=== PATIENT | female | born 1930 | race Caucasian/White ===

== ENCOUNTER 2017-01-01 22:27 | Inpatient (IN) ==
[2017-01-01] MEDS ORDERED: VASOTEC IV ONE (23:22)
[2017-01-01] MEDS ORDERED: NITROGLYCERIN TOP ONE (23:23)
[2017-01-01] MEDS ORDERED: LASIX IV ONE (23:23)
[2017-01-01] MEDS ORDERED: VASOTEC ONE (23:35)
[2017-01-01 23:36] LABS: MANUAL DIFF NEEDED? NO
[2017-01-01 23:47] LABS: BASO% 0.4 % (0.0-0.8); EOS# 0.42 X1000 (0.0-0.7); EOS% 5.9 % (0.0-10.0); HEMATOCRIT 35.1 % (37.0-47.0); HEMOGLOBIN 11.5 g/dL (12.0-16.0); IMM GRAN# 0.01 X1000 (0.0-0.04); IMM GRAN% 0.1 % (0.0-0.5); LYMPH# 1.22 X1000 (1.2-3.4); LYMPH% 17.1 % (20.5-51.1); MCH 29.6 PG (27-31); MCHC 32.8 g/dL (33-37); MCV 90.2 FL (81-99); MONO# 0.67 X1000 (0.11-0.59); MONO% 9.4 % (1.7-9.3); MPV 10.5 FL (7.4-10.4); NEUT% 67.1 % (42.2-75.2); PLT 149 X1000 (130-400); RBC 3.89 XMIL (4.2-5.4)
[2017-01-02] LABS: ALBUMIN 3.6 g/dL (3.5-5.0); CALCIUM 8.4 mg/dL (8.8-10.2); POTASSIUM 3.7 mmol/L (3.5-5.1); TOTAL BILIRUBIN 0.5 mg/dL (0.20-1.00); TOTAL PROTEIN 6.3 g/dL (6.3-8.3)
[2017-01-02 00:11] LABS: URINE CULTURE PL NEEDED? NO
[2017-01-02 00:36] LABS: BILIRUBIN URINE NEGATIVE (NEGATIVE); BLOOD URINE NEGATIVE (NEGATIVE); CLARITY CLEAR (CLEAR); COLOR YELLOW; GLUCOSE URINE NEGATIVE (NEGATIVE); LEUKOCYTES URINE NEGATIVE (NEGATIVE); NITRITE URINE NEGATIVE (NEGATIVE); PROTEIN URINE NEGATIVE (NEGATIVE); SP GRAVITY URINE 1.005; UROBILINOGEN URINE NORMAL
[2017-01-02 00:37] LABS: URINE EPITHELIAL CELLS <10 /HPF (<10); URINE RBC <10 /HPF (<10); URINE SOURCE CATH; URINE WBC <10 /HPF (<10)
[2017-01-02] MEDS ORDERED: TYLENOL PO PRN (01:03)
[2017-01-02] MEDS ORDERED: ZOFRAN IV PRN (01:03)
--- NOTE | 2017-01-02 01:03 | PROVIDER DOCUMENTATION ---
This chart was entered by Andra Romeo Scribe, acting as scribe for Mt Baker MD. HPI-General Adult - General Chief Complaint: Shortness of Breath Stated Complaint: SOB,WEAKNESS Time Seen by Provider: 01/01/17 23:10 Source: patient Allergies/Adverse Reactions: Patient Allergies Allergy/AdvReac Type Severity Reaction Status Date / Time cyclobenzaprine HCl * Allergy Intermediate HEART RACES Verified 01/01/17 22:41 [From Flexeril] Home Medications: Home Medication List Medication Instructions Recorded Confirmed Last Taken Type Aspirin EC 81 mg PO QAM 01/01/17 01/01/17 01/01/17 History Atorvastatin Calcium [Atorvastatin 80 mg PO QHS 01/01/17 01/01/17 01/01/17 History Calcium] Digoxin [Digox] 125 mcg PO DAILY 01/01/17 01/01/17 01/01/17 History Fentanyl [Fentanyl] 1 unit 01/01/17 12/29/16 History Flecainide Acetate [Flecainide 1 tab PO BID 01/01/17 01/01/17 01/01/17 History Acetate] Furosemide [Lasix] 1 tab PO 01/01/17 12/30/16 History Lisinopril [Lisinopril] 20 mg PO BID 01/01/17 01/01/17 01/01/17 History Meloxicam [Meloxicam] 1 tab PO BID 01/01/17 01/01/17 01/01/17 History Metoprolol Succinate [Toprol Xl] 25 mg PO QHS 01/01/17 01/01/17 01/01/17 History Omeprazole [Omeprazole] 1 cap PO QAM 01/01/17 01/01/17 01/01/17 History Oxycodone HCl/Acetaminophen 1 tab PO Q6H PRN PRN 01/01/17 01/01/17 01/01/17 History [Percocet 7.5-325 mg Tablet] Potassium Chloride [Potassium 10 meq PO DIRECTED 01/01/17 01/01/17 12/30/16 History Chloride] Pregabalin [Lyrica] 75 mg PO BID 01/01/17 01/01/17 01/01/17 History Verapamil HCl [Verapamil ER] 1 tab PO BID 01/01/17 01/01/17 01/01/17 History - History of Present Illness -Gen Adult Nature of Presenting Problems: PT IS A 86YOF PRESENTING TO THE ED C/O SOB. PT STATES SHE HAS GOTTEN PROGRESSIVELY SOB AND SWELLING IN HER LOWER EXT. PT HAS A CARDIAC HISTORY AND PACEMAKER IN PLACE. SHE STATES FOR THE PAST FEW DAYS HER WHEEZING AND FATIGUE IS GETTING WORSE AND WANTED TO COME IN TO BE CHECKED OUT TO BE SAFE. Location of Pain/Injury: reports: none Pain Radiation: reports: no radiation Quality of Pain: reports: none Severity: reports: mild, moderate Onset/Duration: reports: gradual, 3 days ago Timing: reports: still present Context/Activities at Onset: reports: light activity Modifying Factors: improves with: nothing Associated Symptoms: reports: fatigue, malaise, shortness of breath, weakness, trouble walking. denies: back/neck pain, chest pain, nausea, vomiting Similar Symptoms Previously?: No Recently seen or treated by another doctor?: No Review of Systems - Adult - REVIEW OF SYSTEMS - ADULT Constitutional: reports: no symptoms reported Eyes: reports: no symptoms reported Ears, Nose, Mouth & Throat: reports: no symptoms reported Cardiovascular: reports: no symptoms reported Respiratory: reports: see HPI, cough, dyspnea on exertion, shortness of breath, wheezing Gastrointestinal: reports: no symptoms reported Genitourinary: reports: no symptoms reported Musculoskeletal: reports: no symptoms reported Integumentary: reports: no symptoms reported Neurological: reports: no symptoms reported Psychiatric: reports: no symptoms reported Endocrine: reports: no symptoms reported Hematologic/Lymphatic: reports: no symptoms reported Allergic/Immunologic: reports: no symptoms reported All Other Systems: Reviewed and Negative Past History - Adult - PAST MEDICAL HISTORY-ADULT Review of Records: reports: Old Records Reviewed, Nursing Assessment Review, Medications Reviewed, Social history reviewed & non-contributory. Major Childhood Illnesses: reports: denies history Cardiovascular: reports: cardiac disease, A-Fib, HTN, palpitations Respiratory: reports: denies history Gastrointestinal: reports: denies history Obstetrical/Gynecological: reports: denies history Genitourinary: reports: denies history Musculoskeletal: reports: denies history Neurological: reports: denies history Endocrine/Immune: reports: denies history Other Conditions: reports: denies history - PRIOR SURGERIES/PROCEDURES Surgical/Procedure History: reports: pacemaker, orthopedic (extremity) - IMMUNIZATION STATUS Childhood Immunizations: See Nurse Assessment Flu Vaccine: See Nurse Assessment - FAMILY HISTORY Family History: reviewed, not pertinent - SOCIAL HISTORY Smoking: denies, non-smoker Substance Use: none/never, denies Alcohol Use Frequency: never Living Situation: family Physical Exam-General - PHYSICAL EXAM-ADULT Initial Vital Signs Reviewed: Yes - CONSTITUTIONAL General Appearance: appears well, alert, mild distress, anxious. negative: no apparent distress - EYES Eyes: PERRL/EOMI, pink conjunctivae, fundi clear, no AV nicking - HEAD, EARS, NOSE, MOUTH & THROAT HENMT: normocephalic/atraumatic, moist mucous membranes, normal ENT inspection, TMs normal, pharynx normal - NECK Neck: non-tender, full range of motion, supple, normal inspection - RESPIRATORY Respiratory: chest non-tender, no pleuratic chest pain, no respiratory distress , no accessory muscle use, decreased breath sounds, rales (BIBASILAR), wheezing . negative: lungs clear, normal breath sounds - CARDIOVASCULAR Cardiovascular: normal peripheral pulses, regular rate, rhythm, no edema, no gallop, no JVD, no murmur - GASTROINTESTINAL (ABDOMEN) Abdominal Exam: normal bowel sounds, non tender, soft, no organomegaly, no pulsatile mass - LYMPHATIC Lymphatic: no adenopathy - MUSCULOSKELETAL Back Exam: normal inspection, no CVA tenderness, no vertebral tenderness Extremity: normal range of motion, non-tender, normal gait, normal inspection, no calf tenderness, normal capillary refill, pelvis stable, pedal edema (2-3+ EDEMA BILATERAL UP TO KNEES). 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 negative: normal mood/affect Progress - PLAN OF CARE/RESULTS Progress/Plan/Lab Results: Vital Signs - 8 hr 01/01/17 22:35 Temperature 97.5 F L Pulse Rate 62 Respiratory Rate 22 Blood Pressure 173/73 O2 Sat by Pulse Oximetry 89 L Orders Category Date Time Status Enalaprilat [Vasotec] Med 01/01/17 23:22 Once 2.5 mg IV NOW ONE Nitroglycerin Med 01/01/17 23:23 Once 1 inch TOP NOW ONE Result Diagrams: 01/01/17 23:10 01/01/17 23:10 - XRAY 1 XRAY: Bilateral XRAY Study: Chest (CARDIOMEGALLY, PULMONARY EDEMA - YUMI) Departure - Departure Time of Disposition Decision: 01:00 DIAGNOSIS: CHF (congestive heart failure), NYHA class I Qualifiers: Congestive heart failure type: diastolic Congestive heart failure chronicity: acute Qualified Code(s): I50.31 - Acute diastolic (congestive) heart failure Disposition: ADMITTED INPATIENT 09 Certified Medical Emergency: Emergent Condition: Fair Referrals and Follow-Ups: Emmett Balderrama MD [Primary Care Provider] - This chart was documented by the indicated scribe, (Andra Romeo Scribe) and accurately reflects the services I performed and decisions made by , Mt Baker MD, as attested by the provider's signature.
[2017-01-02] MEDS ORDERED: LASIX IV SCH (01:15)
--- NOTE | 2017-01-02 06:38 | EKG Report ---
Test Performed on : 01/01/2017 11:28:40 PM Test Reason : pain Blood Pressure : / mmHG Vent. Rate : 060 BPM Atrial Rate : 060 BPM P-R Int : 000 ms QRS Dur : 168 ms QT Int : 464 ms P-R-T Axes : -79 -64 116 degrees QTc Int : 464 ms Ventricular-paced rhythm Abnormal ECG When compared with ECG of 21-NOV-2013 10:25, Electronic ventricular pacemaker has replaced Sinus rhythm. Unconfirmed Result
[2017-01-02] MEDS ORDERED: PERCOCET-5 PO PRN (07:43)
[2017-01-02] MEDS ORDERED: SINGULAIR PO PRN (07:43)
[2017-01-02] MEDS ORDERED: LASIX PO SCH ×2 (07:45→09:00)
[2017-01-02] MEDS ORDERED: LANOXIN PO SCH (09:00)
[2017-01-02] MEDS ORDERED: TAMBOCOR PO SCH (09:00)
[2017-01-02] MEDS ORDERED: ASPIRIN EC PO SCH (09:00)
[2017-01-02] MEDS ORDERED: ISOPTIN SR PO SCH (09:00)
[2017-01-02] MEDS ORDERED: KLOR-CON PO SCH (09:00)
[2017-01-02] MEDS ORDERED: LYRICA PO SCH (09:00)
[2017-01-02] MEDS ORDERED: MOBIC PO SCH (09:00)
[2017-01-02 09:06] LABS: CALCIUM 8.1 mg/dL (8.8-10.2); POTASSIUM 3.5 mmol/L (3.5-5.1)
--- NOTE | 2017-01-02 09:10 | Diag Imaging Result Document ---
PROCEDURE NAME: CHEST-2 VIEWS - 01/01/2017 TWO VIEWS OF THE CHEST: FINDINGS: There is increasing coarse interstitial opacity over both lungs. This may represent worsening pulmonary fibrosis. The inspiration is not quite as optimal as on the previous study of 03/09/2015. There is a pacemaker on the left and electrodes are seen over the lower thoracic spine. IMPRESSION: Possible worsening of pulmonary fibrosis.
--- NOTE | 2017-01-02 10:53 | HISTORY AND PHYSICAL ---
PRIMARY CARE PHYSICIAN: Emmett Balderrama MD CHIEF COMPLAINT: Shortness of breath and bilateral lower extremity edema, wheezing, and fatigue that have progressively worsened over the past couple of days. HISTORY OF PRESENTING ILLNESS: This is an 86-year-old female who presented to [facility] Emergency Room with complaints of increased shortness of breath, bilateral lower extremity edema, wheezing, and fatigue, that had been present for the past several days but had progressively worsened. On arrival, she was noted to have an O2 saturation of 89% on room air. Laboratory data showed a proBNP of 4867. Chest x-ray showed possible worsening of pulmonary fibrosis, so she was admitted for further evaluation and treatment. PAST MEDICAL HISTORY: Supraventricular tachycardia and hypertension. PAST SURGICAL HISTORY: Pacemaker placement and a shoulder surgery. FAMILY HISTORY: Noncontributory. SOCIAL HISTORY: She currently lives alone. Denies any tobacco, alcohol, or illicit drug use. ALLERGIES: Cyclobenzaprine. HOME MEDICATIONS: She takes flecainide 50 mg one p.o. b.i.d., lisinopril 20 mg p.o. b.i.d. is being held, aspirin enteric-coated 81 mg p.o. q.a.m., atorvastatin 80 mg p.o. at bedtime, digoxin 125 mcg p.o. daily, Fentanyl 25 mcg transdermally q.3 days, Lasix 40 mg as directed, Meloxicam 7.5 mg p.o. b.i.d., Toprol-XL 25 mg p.o. at bedtime, Montelukast Sodium 10 mg p.o. q. p.m. p.r.n., omeprazole 40 mg p.o. daily, Percocet 7.5 one p.o. q.6 hours p.r.n., potassium 10 mEq daily, Lyrica 75 mg p.o. b.i.d., verapamil 180 mg p.o. b.i.d. LABORATORY DATA: Showed a white blood cell count of 7.14, hemoglobin 11.5, hematocrit 35.1, platelets 149,000. Sodium 137, potassium 3.7, chloride 102, CO2 24, BUN of 19, creatinine 1.2. Glucose 131. Troponin less than 0.010. ProBNP of 4867. Urinalysis was negative. Chest x-ray showed possible worsening of pulmonary fibrosis. Electrocardiogram showed ventricular paced rhythm at 60. REVIEW OF SYSTEMS: She denied any fever, chills, blurred vision, dizziness, or chest pain. She had a mild nonproductive cough, shortness of breath, wheezing, and fatigue. Denied any abdominal pain, constipation, diarrhea, burning or hurting with urination. Was positive for some bilateral lower extremity edema. PHYSICAL EXAMINATION: VITAL SIGNS: On arrival showed a temperature of 97.5 degrees, pulse 62, respirations 22, blood pressure 173/73. She was saturating 89% on room air. Currently saturating 98% on nasal cannula. GENERAL: This is an 86-year-old female who is lying in the bed and answers questions appropriately. HEENT: Normocephalic and atraumatic. Pupils are equal, round, and reactive to light. Extraocular movements are intact. Oropharynx and nares are clear. NECK: Supple. LUNGS: Clear to auscultation bilaterally with equal lung expansion and chest wall movement. HEART: With regular rate and rhythm. No murmurs, rubs, or gallops. ABDOMEN: Soft, nontender, nondistended. Bowel sounds are present x4 quadrants. EXTREMITIES: No clubbing, cyanosis. Patient is noted to have 2+ pitting edema to bilateral lower extremities. NEUROLOGICAL: The cranial nerves 2-12 are grossly intact. ASSESSMENT: 1. Acute diastolic congestive heart failure. Last echocardiogram in 2014 showed an ejection fraction of 65-70%. 2. Acute respiratory failure. 3. Hypertension. PLAN: She was admitted to the medical unit at [facility]. Placed on daily weights. It is noted when she came in she weighed 141 pounds and 8 ounces. This a.m. she weighed 139 pounds and 12 ounces. Placed on telemetry. O2 per protocol. Healthy heart diet. Continue home medications as previously identified. Dictated by SHREYAS Lundberg for Emmett Balderrama MD cc: SHREYAS Lundberg MD
[2017-01-02 15:39] VITALS: BP 147/64
[2017-01-02] MEDS ORDERED: TOPROL XL PO SCH (21:00)
[2017-01-02] MEDS ORDERED: LIPITOR PO SCH (21:00)
[2017-01-03] MEDS ORDERED: PRILOSEC PO SCH (07:00)
[2017-01-05] MEDS ORDERED: DURAGESIC 25 MICROGM/HR PATCH TD SCH (06:00)
--- NOTE | 2017-01-07 16:55 | DISCHARGE SUMMARY ---
ADMISSION DATE: 01/01/2017 DISCHARGE DATE: 01/02/2017 DISCHARGE DIAGNOSES: 1. Diastolic congestive heart failure. 2. Hypoxemia improved. 3. Generalized weakness. 4. Shortness of breath. 5. Chronic supraventricular tachycardia. 6. Acute respiratory failure resolved. 7. Hypertension stable. CONSULTATIONS: None. PROCEDURES: None. BRIEF HOSPITAL COURSE: The patient is an 86-year-old female who was admitted as noted on the HPI, treated in the usual fashion and watched overnight. Thankfully on discharge her respiratory symptoms had improved. She was feeling better. She was ambulating in the raymond back to her usual self and, therefore, she will be discharged home. DISPOSITION: The patient will be discharged home. She will follow up as outpatient in 1-2 weeks, sooner should symptoms worsen or return. No other changes were made on her chronic home medications. She will continue to watch her diet from heart failure. cc: Emmett Balderrama MD
== END 2017-01-02 22:00 | disposition home or self-care (01) ==
LOC: P.ED 22:27 → P.MEDSURG 01-02 01:25 → SUATTDRO 01-02 01:25
PROVIDERS: ADMIT Family Medicine; ATTEND Family Medicine

== ENCOUNTER 2017-02-13 17:28 | Observation (INO) ==
[2017-02-13 17:48] LABS: MANUAL DIFF NEEDED? NO
[2017-02-13 17:51] LABS: BASO% 0.1 % (0.0-0.8); EOS# 0.33 X1000 (0.0-0.7); EOS% 4.7 % (0.0-10.0); HEMATOCRIT 38.8 % (37.0-47.0); HEMOGLOBIN 12.6 g/dL (12.0-16.0); IMM GRAN# 0.01 X1000 (0.0-0.04); IMM GRAN% 0.1 % (0.0-0.5); LYMPH# 1.65 X1000 (1.2-3.4); LYMPH% 23.7 % (20.5-51.1); MCH 28.9 PG (27-31); MCHC 32.5 g/dL (33-37); MONO# 0.77 X1000 (0.11-0.59); MONO% 11.1 % (1.7-9.3); NEUT% 60.3 % (42.2-75.2); PLT 173 X1000 (130-400); RBC 4.36 XMIL (4.2-5.4)
[2017-02-13 18:09] LABS: INR 0.95 (0.86-1.15)
[2017-02-13 18:10] LABS: PTT PL 31.7 Seconds (22.6-43.9)
--- NOTE | 2017-02-13 18:13 | EKG Report ---
Test Performed on : 02/13/2017 5:58:45 PM Test Reason : CHEST PAIN Blood Pressure : / mmHG Vent. Rate : 060 BPM Atrial Rate : 060 BPM P-R Int : 000 ms QRS Dur : 172 ms QT Int : 458 ms P-R-T Axes : 000 -57 119 degrees QTc Int : 458 ms Ventricular-paced rhythm Abnormal ECG When compared with ECG of 01-JAN-2017 23:28, No significant change was found Unconfirmed Result
[2017-02-13 18:30] LABS: ALBUMIN 3.9 g/dL (3.5-5.0); POTASSIUM 3.8 mmol/L (3.5-5.1); TOTAL BILIRUBIN 0.6 mg/dL (0.20-1.00); TOTAL PROTEIN 6.7 g/dL (6.3-8.3)
--- NOTE | 2017-02-13 18:42 | Diag Imaging Result Doc PS360 ---
EXAM: CHEST-2 VIEWS HISTORY: CP TECHNIQUE: COMPARISON: 01/02/2017 FINDINGS: The lungs are hyperexpanded. 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 The heart is enlarged. There are increased interstitial markings in the mid and lower lungs believed to be fibrosis. No effusions. No free air beneath the diaphragm. There are several mild mid and lower thoracic compression fractures. No definite change. IMPRESSION: 1.Emphysema 2.Cardiomegaly 3.Increased interstitial markings believed to be fibrosis 4.Mild thoracic compression fractures Electronically signed by Imer Javier 02/13/2017 6:40 PM
[2017-02-13] MEDS ORDERED: NS 1,000 ML IV ONE (19:11)
[2017-02-13] MEDS ORDERED: LASIX IV ONE (19:13)
--- NOTE | 2017-02-13 20:17 | PROVIDER DOCUMENTATION ---
This chart was entered by Nadia Yao Scribe, acting as scribe for Felix Burleson MD. HPI-General Adult - General Chief Complaint: Edema Stated Complaint: EXTREMITY SWELLING/SOB Time Seen by Provider: 02/13/17 18:45 Source: patient Allergies/Adverse Reactions: Patient Allergies Allergy/AdvReac Type Severity Reaction Status Date / Time cyclobenzaprine HCl * Allergy Intermediate HEART RACES Verified 01/01/17 22:41 [From Flexeril] Home Medications: Home Medication List Medication Instructions Recorded Confirmed Last Taken Type Aspirin EC 81 mg PO QAM 01/01/17 01/01/17 01/01/17 History Atorvastatin Calcium 80 mg PO QHS 01/01/17 01/01/17 01/01/17 History Digoxin [Digox] 125 mcg PO DAILY 01/01/17 01/01/17 01/01/17 History Fentanyl 25 mcg TD Q3DAYS 01/01/17 01/02/17 12/29/16 History Flecainide Acetate 1 tab PO BID 01/01/17 01/01/17 01/01/17 History Furosemide [Lasix] 40 mg PO DIRECTED 01/01/17 01/02/17 12/30/16 History Lisinopril 20 mg PO BID 01/01/17 01/01/17 01/01/17 History Meloxicam 1 tab PO BID 01/01/17 01/01/17 01/01/17 History Metoprolol Succinate [Toprol Xl] 25 mg PO QHS 01/01/17 01/01/17 01/01/17 History Omeprazole 40 mg PO DAILY@0700 01/01/17 01/02/17 01/01/17 History Oxycodone HCl/Acetaminophen 1 tab PO Q6H PRN PRN 01/01/17 01/01/17 01/01/17 History [Percocet 7.5-325 mg Tablet] Potassium Chloride 10 meq PO DIRECTED 01/01/17 01/01/17 12/30/16 History Pregabalin [Lyrica] 75 mg PO BID 01/01/17 01/01/17 01/01/17 History Verapamil HCl [Verapamil ER] 1 tab PO BID 01/01/17 01/01/17 01/01/17 History Flecainide Acetate 50 mg PO BID 01/02/17 01/02/17 Unknown History Montelukast Sodium 10 mg PO QPM PRN PRN 01/02/17 01/02/17 Unknown History - History of Present Illness -Gen Adult Nature of Presenting Problems: 86 year old F presents to the ED with a cc of edema. PT states that since she was discharged from the hospital on 01/02 she has gained 9 pounds. Pt states that since yesterday she has gained 4 pounds. Severity: reports: mild Onset/Duration: reports: other (1 month) Timing: reports: still present Similar Symptoms Previously?: Yes Recently seen or treated by another doctor?: No Review of Systems - Adult - REVIEW OF SYSTEMS - ADULT Constitutional: denies: chills, fever Eyes: reports: no symptoms reported Ears, Nose, Mouth & Throat: reports: no symptoms reported Cardiovascular: reports: edema. denies: chest pain, palpitations Respiratory: denies: cough, shortness of breath Gastrointestinal: denies: nausea, vomiting Genitourinary: reports: no symptoms reported Musculoskeletal: reports: no symptoms reported Integumentary: denies: skin sores/ulcer, skin thickening Neurological: reports: no symptoms reported Psychiatric: reports: no symptoms reported Endocrine: reports: no symptoms reported Hematologic/Lymphatic: reports: no symptoms reported Allergic/Immunologic: reports: no symptoms reported All Other Systems: Reviewed and Negative Past History - Adult - PAST MEDICAL HISTORY-ADULT Review of Records: reports: Nursing Assessment Review, Medications Reviewed Major Childhood Illnesses: reports: denies history Cardiovascular: reports: cardiac disease, A-Fib, HTN, palpitations Respiratory: reports: denies history Gastrointestinal: reports: denies history Obstetrical/Gynecological: reports: denies history Genitourinary: reports: denies history Musculoskeletal: reports: denies history Neurological: reports: denies history Endocrine/Immune: reports: denies history Other Conditions: reports: denies history - PRIOR SURGERIES/PROCEDURES Surgical/Procedure History: reports: pacemaker, orthopedic (extremity) - IMMUNIZATION STATUS Childhood Immunizations: See Nurse Assessment Flu Vaccine: See Nurse Assessment - FAMILY HISTORY Family History: reviewed, not pertinent - SOCIAL HISTORY Smoking: non-smoker Substance Use: none/never Alcohol Use Frequency: never Physical Exam-General - PHYSICAL EXAM-ADULT Initial Vital Signs Reviewed: Yes - CONSTITUTIONAL General Appearance: appears well, alert, no apparent distress - RESPIRATORY Respiratory: rales - CARDIOVASCULAR Cardiovascular: normal peripheral pulses, regular rate, rhythm, other ( pacemaker pouch to anterior left shoulder) - GASTROINTESTINAL (ABDOMEN) Abdominal Exam: normal bowel sounds, non tender, soft - MUSCULOSKELETAL Back Exam: other (2+ presacral edema) Extremity: pedal edema (2+ bilateral lower extremities) Progress - PLAN OF CARE/RESULTS Progress/Plan/Lab Results: Vital Signs - 8 hr 02/13/17 17:30 02/13/17 17:31 02/13/17 17:45 Temperature 98 F Pulse Rate 66 79 60 Respiratory Rate 22 20 Blood Pressure 150/73 176/86 155/77 O2 Sat by Pulse Oximetry 88 L 96 02/13/17 18:00 02/13/17 18:15 Temperature Pulse Rate 60 60 Respiratory Rate 25 H 19 Blood Pressure 150/77 149/70 O2 Sat by Pulse Oximetry Laboratory Results - last 24 hr 02/13/17 02/13/17 02/13/17 17:40 17:40 17:40 WBC RBC Hgb Hct MCV MCH MCHC RDW Std Deviation Plt Count MPV Immature Gran % (Auto) Neut % (Auto) Lymph % (Auto) Newton % (Auto) Eos % (Auto) Baso % (Auto) Immature Gran # (Auto) Neut # (Auto) Lymph # (Auto) Newton # (Auto) Eos # (Auto) Baso # (Auto) PT INR APTT (Factor Assay) Sodium 138 Potassium 3.8 Chloride 99 Carbon Dioxide 24 L Anion Gap 15 BUN 18 Creatinine 1.3 H Estimated GFR/1.73 m2 39 BUN/Creatinine Ratio 14 Glucose 114 H Calculated Osmolality 278 Calcium 8.0 L Magnesium 2.0 Total Bilirubin 0.60 AST 25 ALT 19 Alkaline Phosphatase 105 H Creatine Kinase 97 Troponin T < 0.010 Zbo-[id number]-Zyqkrjlsngo Pept 6737 H Total Protein 6.7 Albumin 3.9 Globulin 3.0 Albumin/Globulin Ratio 1.0 02/13/17 02/13/17 17:40 17:40 WBC 6.96 RBC 4.36 Hgb 12.6 Hct 38.8 MCV 89.0 MCH 28.9 MCHC 32.5 L RDW Std Deviation 13.9 Plt Count 173 MPV 10.0 Immature Gran % (Auto) 0.1 Neut % (Auto) 60.3 Lymph % (Auto) 23.7 Newton % (Auto) 11.1 H Eos % (Auto) 4.7 Baso % (Auto) 0.1 Immature Gran # (Auto) 0.01 Neut # (Auto) 4.19 Lymph # (Auto) 1.65 Newton # (Auto) 0.77 H Eos # (Auto) 0.33 Baso # (Auto) 0.01 PT 13.0 INR 0.95 APTT (Factor Assay) 31.7 Sodium Potassium Chloride Carbon Dioxide Anion Gap BUN Creatinine Estimated GFR/1.73 m2 BUN/Creatinine Ratio Glucose Calculated Osmolality Calcium Magnesium Total Bilirubin AST ALT Alkaline Phosphatase Creatine Kinase Troponin T Alm-A-Csjgznlfbih Pept Total Protein Albumin Globulin Albumin/Globulin Ratio Orders Category Date Time Status Cardiac Monitoring DIRECTED Care 02/13/17 17:36 Active Saline Loc NOW Care 02/13/17 17:36 Active CHEST-2 VIEWS [RAD] Stat Exams 02/13/17 17:36 Completed CBC WITH ELECTRONIC DIFF [HEME] Stat Lab 02/13/17 17:40 Completed CK PROFILE [SP CHEM] Stat Lab 02/13/17 17:40 Completed COMPREHENSIVE METABOLIC PANEL [CHEM] Stat Lab 02/13/17 17:40 Completed MAGNESIUM [CHEM] Stat Lab 02/13/17 17:40 Completed PRO B-NATRIURETIC PEPTIDE Stat Lab 02/13/17 17:40 Completed [address]IME WITH INR PL [COAG] Stat Lab 02/13/17 17:[address] [COAG] Stat Lab 02/13/17 17:40 Completed TROPONIN T Stat Lab 02/13/17 17:40 Completed EKG [EKG] Stat Ther 02/13/17 17:36 Draft Result Diagrams: 02/13/17 17:40 02/13/17 17:40 - EKG 1 Time of EKG reading by physician:: 17:58 EKG Read and Signed by:: Felix Burleson EKG Interpretation (*Must complete 3 of following elements*): Abnormal Rate: 60 Rhythm: ventricular-paced rhythm - CONSULTS/PCP/HOSPITALIST Notification #1 *Consult/PCP/Hospitalist*: Dr. Balderrama(PCP) Time Discussed: 19:05 Departure - Departure Time of Disposition Decision: 20:16 DIAGNOSIS: CHF (congestive heart failure), NYHA class I Qualifiers: Congestive heart failure type: unspecified congestive heart failure type Qualified Code(s): I50.9 - Heart failure, unspecified Disposition: ADMITTED INPATIENT 09 Certified Medical Emergency: Emergent Condition: Stable - Critical Care Note This patient required my direct & personal management of CC.: No This chart was documented by the indicated scribe, (Nadia Yao Scribe) and accurately reflects the services I performed and decisions made by me, Felix Burleson MD, as attested by the provider's signature.
[2017-02-13] MEDS: PERCOCET-5 PO PRN (22:53)
[2017-02-14] MEDS ORDERED: MIRALAX PO PRN (06:52)
[2017-02-14] MEDS ORDERED: ACETAMINOPHEN PO PRN (06:52)
[2017-02-14] MEDS ORDERED: OXYCODONE HCL PO PRN (06:52)
[2017-02-14] MEDS: PRILOSEC PO SCH (08:51)
[2017-02-14] MEDS: LASIX IV SCH ×2 (08:51→18:27)
[2017-02-14] MEDS: COLACE PO SCH (08:52)
[2017-02-14] MEDS: LYRICA PO SCH ×2 (08:53→20:58)
[2017-02-14] MEDS: ISOPTIN SR PO SCH ×2 (08:53→21:02)
[2017-02-14] MEDS: PRINIVIL PO SCH ×2 (08:53→20:59)
[2017-02-14] MEDS: CALTRATE 600 + D PO SCH (08:53)
[2017-02-14] MEDS: MOBIC PO SCH (08:54)
[2017-02-14] MEDS: SINGULAIR PO SCH (08:54)
[2017-02-14] MEDS: ASPIRIN EC PO SCH (08:54)
[2017-02-14] MEDS: LANOXIN PO SCH (08:56)
--- NOTE | 2017-02-14 10:18 | HISTORY AND PHYSICAL ---
PRIMARY CARE PHYSICIAN: Dr. Emmett Balderrama. CHIEF COMPLAINT: Nine pound weight gain since she was discharged from this facility on 01/02/2017. States on arrival that she had gained 4 pounds in 1 day. HISTORY OF PRESENTING ILLNESS: This is an 86-year-old female who presents to [facility] ER with complaints of a 9 pound weight gain since she was discharged on 01/02/2017 from this facility. States that prior to arriving she had gained 4 pounds in 1 day. When she was in the hospital on 01/02/2017 through 01/07/2017 she had been admitted for an acute diastolic congestive heart failure exacerbation with hypoxemia and an acute respiratory failure. When she arrived to the emergency room. She had an O2 saturation of 88% on room air. Her laboratory data showed a proBNP of 6,737. Creatinine was slightly increased at 1.3. Her chest x-ray showed emphysema and cardiomegaly. She was noted to have 2+ edema to bilateral lower extremities. So, she was admitted for further evaluation and treatment. PAST MEDICAL HISTORY: SVT, hypertension, and diastolic congestive heart failure. PAST SURGICAL HISTORY: Pacemaker placement and shoulder surgery. FAMILY HISTORY: Noncontributory. SOCIAL HISTORY: She currently lives alone. Denies any tobacco, alcohol, or illicit drug use. ALLERGIES: Cyclobenzaprine. HOME MEDICATIONS: We will hold her Lasix 40 mg. We will continue the following. Aspirin 81 mg p.o. q.a.m., atorvastatin 80 mg p.o. at bedtime, calcium plus vitamin D3 600 mg p.o. q.a.m., digoxin 125 mcg p.o. daily, docusate sodium 100 mg p.o. q.a.m., donepezil 5 mg p.o. q.p.m., fentanyl patch 12 mcg transdermally q.3 days, flecainide acetate 50 mg p.o. b.i.d., Breo-Ellipta 1 inhalation daily, lisinopril 20 mg p.o. b.i.d., meloxicam 7.5 mg p.o. b.i.d., metoprolol 25 mg p.o. at bedtime, montelukast sodium 10 mg p.o. q.a.m., omeprazole 40 mg p.o. daily, Percocet 7.5 one p.o. q.6 hours p.r.n., MiraLAX 17 g p.o. daily p.r.n., potassium 10 mEq p.o. as directed, Lyrica 75 mg p.o. b.i.d., ropinirole 0.5 mg p.o. q.p.m., and verapamil 180 mg p.o. b.i.d. LABORATORY DATA: Showed a white blood cell count of 6.96, hemoglobin 12.6, hematocrit 38.8, platelets 173,000. PT and INR of 13.0 and 0.95. Sodium 138, potassium 3.8, chloride 99, CO2 24, BUN of 18, creatinine 1.3, glucose 114, magnesium of 2, creatine kinase of 97. Troponin less than 0.010. ProBNP of 6,737. Chest x-ray showed emphysema, cardiomegaly, increased interstitial markings believed to be fibrosis and some mild thoracic compression fractures. EKG showed a ventricular paced rhythm at 60. REVIEW OF SYSTEMS: She denied any fever, chills, blurred vision, dizziness, chest pain, coughing, shortness of breath. She denied any abdominal pain, constipation, diarrhea, nausea, vomiting or burning or hurting with urination. She was positive for increased swelling to her lower extremities and a 9 pound weight gain since her previous discharge. PHYSICAL EXAMINATION: VITAL SIGNS: On arrival, she had a temperature of 98 degrees, a pulse of 66, respirations 22, blood pressure 150/73, was saturating 88% on room air. Currently saturating 97 to 100% on 2 L via nasal cannula. GENERAL: This is an 86-year-old female who is lying in the bed, answers questions appropriately. HEENT: Normocephalic and atraumatic. Pupils are equal, round, and reactive to light. The extraocular movements are intact. The oropharynx and nares are clear. NECK: Supple. LUNGS: With some scattered crackles bilaterally. Equal lung expansion and chest wall movement. HEART: With regular rate and rhythm. No murmurs, rubs, or gallops. ABDOMEN: Soft, nontender, nondistended. Bowel sounds are present x4 quadrants. EXTREMITIES: There is no clubbing, cyanosis. Patient was noted on arrival to have 2+ pitting edema to her bilateral lower extremities. This is much improved this a.m. after she received Lasix and has had a 2 pound weight loss since arriving yesterday. When she came in she weighed 150 pounds, now weighs 148 and the edema is trace at best. NEUROLOGICAL: The cranial nerves 2 through 12 appear grossly intact. ASSESSMENT: 1. Diastolic congestive heart failure. 2. Hypoxemia. 3. Hypertension. 4. Bilateral lower extremity edema. PLAN: She was admitted to the medical unit at [facility]. Will do daily weights. O2 per protocol. Telemetry. Healthy heart diet. Continue her home medications. Placed on Lasix 40 mg IV q.12 and stop after 3 doses. Recheck a CBC and a BMP in the a.m. Pt is a full code. Dictated by SHREYAS Lundberg for Emmett Balderrama MD cc: SHREYAS Lundberg MD MTDD
[2017-02-14] MEDS: TAMBOCOR PO SCH ×2 (10:20→20:56)
[2017-02-14] MEDS: LIPITOR PO SCH (20:56)
[2017-02-14] MEDS: TOPROL XL PO SCH (20:57)
[2017-02-14] MEDS: REQUIP PO SCH (20:58)
[2017-02-14] MEDS: ARICEPT PO SCH (20:58)
[2017-02-14] MEDS: PERCOCET-5 PO PRN (20:59)
[2017-02-15] MEDS: PRILOSEC PO SCH (06:08)
[2017-02-15] MEDS: LASIX IV SCH (06:08)
[2017-02-15 06:24] LABS: MANUAL DIFF NEEDED? NO
[2017-02-15 06:32] LABS: BASO% 0.3 % (0.0-0.8); EOS# 0.38 X1000 (0.0-0.7); EOS% 5.7 % (0.0-10.0); HEMATOCRIT 36.5 % (37.0-47.0); HEMOGLOBIN 11.7 g/dL (12.0-16.0); IMM GRAN# 0.01 X1000 (0.0-0.04); IMM GRAN% 0.2 % (0.0-0.5); LYMPH# 1.48 X1000 (1.2-3.4); LYMPH% 22.3 % (20.5-51.1); MCH 28.1 PG (27-31); MCHC 32.1 g/dL (33-37); MCV 87.7 FL (81-99); MONO# 0.83 X1000 (0.11-0.59); MONO% 12.5 % (1.7-9.3); MPV 10.5 FL (7.4-10.4); PLT 161 X1000 (130-400); RBC 4.16 XMIL (4.2-5.4)
[2017-02-15 07:07] LABS: CALCIUM 8.4 mg/dL (8.8-10.2); POTASSIUM 3.3 mmol/L (3.5-5.1)
[2017-02-15] MEDS ORDERED: LASIX PO SCH (08:15)
--- NOTE | 2017-02-15 08:33 | PROGRESS NOTE ---
DATE: 02/15/2017 SUBJECTIVE: The patient notes that she is feeling much better. She denies any current chest pain, palpitations. Denies any fevers or chills. Notes that she feels good as she did when she left the hospital after the last admission. OBJECTIVE: Vital Signs: On physical, temp 98, pulse 80, respiratory rate 18, BP 156/76, weight 140 and was actually 150 on arrival. General: Patient is awake, alert, oriented. She is currently in no distress. Speech is regular. Neck: Supple. CV: Regular rate. Chest: Clear. Nonlabored. No wheezing. Abdomen: Soft. Extremities: Moves all extremities. Neurologic: No focal changes. Skin: Warm and dry. No rashes. Musculoskeletal: Trace edema in the bilateral lower extremities. ASSESSMENT: 1. Diastolic congestive heart failure. 2. Chronic hypoxemia. 3. Chronic hypertension. 4. Mild dementia. 5. Chronic obstructive pulmonary disease. 6. Chronic arthritis. 7. Reflux. 8. Chronic pain. 9. High cholesterol. PLAN: We will continue patient's home medications. At this point, we will attempt to change her over to oral Lasix. Certainly expect that unintentional medical noncompliance may have been the cause of her readmission. She currently is exactly where she was when she was discharged from the hospital. I expect after going home, she became confused and did not take her medications as they were being given in the hospital. We will convert her over to oral medicines and hopefully home in the next 1-2 days. cc: Emmett Balderrama MD
[2017-02-15] MEDS ORDERED: KLOR-CON PO SCH (09:00)
[2017-02-15] MEDS: ASPIRIN EC PO SCH (09:56)
[2017-02-15] MEDS: TAMBOCOR PO SCH ×2 (09:56→21:22)
[2017-02-15] MEDS: PRINIVIL PO SCH ×2 (09:56→23:03)
[2017-02-15] MEDS: CALTRATE 600 + D PO SCH (09:57)
[2017-02-15] MEDS: COLACE PO SCH (09:58)
[2017-02-15] MEDS: LYRICA PO SCH ×2 (09:58→21:23)
[2017-02-15] MEDS: SINGULAIR PO SCH (09:58)
[2017-02-15] MEDS: MOBIC PO SCH (09:58)
[2017-02-15] MEDS: ISOPTIN SR PO SCH ×2 (09:59→23:03)
[2017-02-15] MEDS: LANOXIN PO SCH (10:00)
[2017-02-15] MEDS ORDERED: POTASSIUM CHLORIDE 20% LIQUID PO ONE (10:54)
--- NOTE | 2017-02-15 11:46 | EKG Report ---
Test Performed on : 02/15/2017 11:08:35 AM Test Reason : dyspnea Blood Pressure : / mmHG Vent. Rate : 065 BPM Atrial Rate : 065 BPM P-R Int : 000 ms QRS Dur : 166 ms QT Int : 438 ms P-R-T Axes : 000 -53 119 degrees QTc Int : 455 ms Ventricular-paced rhythm Abnormal ECG When compared with ECG of 13-FEB-2017 17:58, Vent. rate has increased BY 5 BPM Confirmed by Felix Burleson MD ([id number]) on 03/13/2017 6:42:06 PM
[2017-02-15] MEDS: ALDACTONE PO SCH (13:28)
--- NOTE | 2017-02-15 20:20 | CONSULTATION ---
DATE OF CONSULTATION: 02/15/2017 CHIEF COMPLAINT: Lower extremity edema, dyspnea. HISTORY: Ms. See is an 86-year-old female, patient of mine, who presented to [facility] ER on February 13 with complaints of increasing dyspnea and swelling of the lower extremities. Upon presentation, a chest x-ray showed interstitial markings, cardiomegaly, and emphysema. A 12-lead EKG showed activity of a dual-chamber pacemaker with atrial sensing. The blood work initially showed elevated pro BNP at 6737. Troponin level was checked and it was normal. The patient was given Lasix IV and she has experienced good diuresis. She feels like she has lost several pounds. She says that both legs were swelling up quite a bit over the course of several days and she was getting increasingly more short of breath prior to admission. I am seeing her on February 15 at about 3 p.m. and she is feeling much more comfortable. Her pacemaker has been interrogated today and it shows normal function. Her past history is positive for sick sinus syndrome with tachycardia-bradycardia syndrome. She has history of diastolic heart failure with previous admission to the hospital for almost similar reasons just about a month ago. She has hypertension. She has history of osteoporosis with vertebral fracture or compression fracture. I saw her at my office last time on August 30 of last year. At that time her weight was 141 pounds. She was in no distress. She reported feeling generally well. Her past history includes restless leg syndrome. She has had previous left-sided lobectomy. She has had sciatica type of pain. HOME MEDICATIONS: Her home medications listed at the time of this admission included: 1. Verapamil ER twice a day. 2. Lyrica 75 twice a day. 3. Potassium chloride 10 mEq as directed. 4. Omeprazole 40 mg daily. 5. Meloxicam 1 tablet twice a day. 6. Lisinopril 20 twice a day. 7. Lasix 40 mg as directed. 8. Flecainide 50 twice a day. 9. Digoxin 0.125 daily. 10.Ropinirole 0.5 at bedtime. 11.MiraLAX. 12.Singulair. 13.Metoprolol succinate 25 at bedtime. 14.Aricept 5 mg at bedtime. 15.Docusate 100 daily. 16.Atorvastatin 80 mg at bedtime. 17.Aspirin 81 mg daily. 18.Fentanyl 12 mcg every 3 days. 19.Oxycodone/acetaminophen as needed. 20.Breo Ellipta. It is noted that her verapamil dosage per my records is 180 twice daily. ALLERGIES: Flexeril. REVIEW OF SYSTEMS: Positive for swelling, dyspnea, and back pain. PHYSICAL EXAMINATION: Vital signs: Blood pressure is 130/62, temperature 97.6, pulse 60, respirations 18. General: She is awake, alert, oriented, in no distress. HEENT: Unremarkable. Chest: Sounds very clear to auscultation and percussion. Cardiac: Heart sounds are regular and rhythmic. I do not hear any gallop. She does have a systolic murmur over the left sternal border, about 2/6. Abdomen: Nontender. Extremities: Show trace edema. She has good pulses. Neurologic: She moves four extremities, follows commands. She is somewhat hard of hearing. LABORATORY DATA: Sodium 139, potassium 3.3, BUN 19, creatinine 1.1. White count 6640, hemoglobin 11.7, hematocrit 36.5. IMPRESSION: 1. Patient presenting with increasing dyspnea and swelling of her lower extremities with elevated pro BNP, abnormal chest x-ray consistent with congestive heart failure, chronic, diastolic, with exacerbation. 2. 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 Pacemaker function appears to be normal. 3. History of hypertension. 4. History of hyperlipidemia. 5. History of back pain. RECOMMENDATIONS: At this point in time I would continue diuretics. Will probably add spironolactone to her regimen. The patient tells me that she eats a lot from outside and that might be contributing to her edema. I suggested to her to try to limit her food intake to stuff made at home or she may have to take extra Lasix whenever she eats stuff from outside. At any rate, at this point in time she seems to be improving and she may be getting closer to the point where she may be discharged home with instructions to follow up in the office. cc: Gomez Adams MD
[2017-02-15] MEDS: PERCOCET-5 PO PRN (21:21)
[2017-02-15] MEDS: ARICEPT PO SCH (21:23)
[2017-02-15] MEDS: LIPITOR PO SCH (23:03)
[2017-02-15] MEDS: TOPROL XL PO SCH (23:04)
[2017-02-15] MEDS: REQUIP PO SCH (23:04)
[2017-02-16] MEDS ORDERED: DURAGESIC 25 MICROGM/HR PATCH TD SCH (06:00)
[2017-02-16] MEDS: PRILOSEC PO SCH (06:10)
[2017-02-16 06:54] LABS: CALCIUM 8.5 mg/dL (8.8-10.2); POTASSIUM 3.8 mmol/L (3.5-5.1)
[2017-02-16 07:48] VITALS: BP 126/62
--- NOTE | 2017-02-16 08:14 | DISCHARGE SUMMARY ---
ADMISSION DATE: 02/13/2017 DISCHARGE DATE: 02/16/2017 DISCHARGE DIAGNOSES: 1. Congestive heart failure, diastolic with exacerbation. 2. Hypoxemia. 3. Hypertension. 4. Supraventricular tachycardia, with a dual pacemaker. CONSULTATIONS: Cardiology. PROCEDURES: None. BRIEF HOSPITAL COURSE: Patient is an 86-year-old female who was admitted as noted on the HPI. Treated in the usual fashion. Placed on IV Lasix which she tolerated very well. She had a marked improvement. In fact, her weight was down to 135 on discharge. She was at 150 on admission. Her vital signs remained stable. Kidney function remained stable. On discharge, she was awake, alert. She is in no distress. She notes that she is feeling better. She is breathing easier. She is ambulating without difficulty and is asking to go home. The family took it upon themselves to call cardiology. She had a pacemaker evaluation which was normal. Cardiology came and saw her, and agreed with the current plan and declined any further changes in her medications. DISPOSITION: The patient will be discharged home. Discussed with her to take Lasix and Aldactone each day. Discussed with her to watch her sodium intake. Check her diet and check her weight each day. If she gains more than 2 pounds, she will need to increase her Lasix at home. I certainly feel as though noncompliance had a large role in her admission to the hospital. Thirty-five minutes were spent in discharge planning. cc: Emmett Balderrama MD
[2017-02-16] MEDS: TAMBOCOR PO SCH (09:26)
[2017-02-16] MEDS: MOBIC PO SCH (09:27)
[2017-02-16] MEDS: COLACE PO SCH (09:27)
[2017-02-16] MEDS: ASPIRIN EC PO SCH (09:27)
[2017-02-16] MEDS: ISOPTIN SR PO SCH (09:27)
[2017-02-16] MEDS: LYRICA PO SCH (09:27)
[2017-02-16] MEDS: LANOXIN PO SCH (09:27)
[2017-02-16] MEDS: SINGULAIR PO SCH (09:27)
[2017-02-16] MEDS: ALDACTONE PO SCH (09:28)
[2017-02-16] MEDS: CALTRATE 600 + D PO SCH (09:28)
[2017-02-16] MEDS: PRINIVIL PO SCH (09:28)
[2017-02-17] MEDS ORDERED: LASIX PO SCH (09:00)
== END 2017-02-16 11:35 | disposition home or self-care (01) ==
LOC: P.ED 17:28 → P.MEDSURG 17:28 → SUATTDRO 20:12 → P.MEDSURG 20:16
PROVIDERS: ATTEND Family Medicine

== ENCOUNTER 2017-03-07 16:10 | Inpatient (IN) ==
[2017-03-07 16:52] LABS: MANUAL DIFF NEEDED? NO
[2017-03-07 16:55] LABS: BE -1.1 mmoll (-3.0-3.0); BLOOD TYPE ARTERIAL; DRAW SITE R BRACHIAL; METHB 0.8 % (0.0-1.5); O2(CT) 15.7 mL/dL (15.0-23.0); PCO2(98.6) 45 mmHg (35-45); PO2(98.6) 54 mmHg (60-100); SAMPLE BLOOD; SAO2 91.9 % (95.0-100.0); THB 12.6 g/dL (11.5-17.4); pH(98.6) 7.35 (7.35-7.45)
[2017-03-07 16:57] LABS: BASO% 0.2 % (0.0-0.8); EOS# 0.27 X1000 (0.0-0.7); EOS% 3.2 % (0.0-10.0); HEMATOCRIT 35.5 % (37.0-47.0); HEMOGLOBIN 12.1 g/dL (12.0-16.0); IMM GRAN# 0.01 X1000 (0.0-0.04); IMM GRAN% 0.1 % (0.0-0.5); LYMPH# 1.91 X1000 (1.2-3.4); LYMPH% 22.3 % (20.5-51.1); MCH 29.4 PG (27-31); MCHC 34.1 g/dL (33-37); MCV 86.4 FL (81-99); MONO# 1.02 X1000 (0.11-0.59); MONO% 11.9 % (1.7-9.3); MPV 9.8 FL (7.4-10.4); NEUT% 62.3 % (42.2-75.2); PLT 171 X1000 (130-400); RBC 4.11 XMIL (4.2-5.4)
[2017-03-07 16:58] LABS: ALLEN TEST NO; MODALITY ROOM AIR
[2017-03-07 17:15] LABS: ALBUMIN 3.3 g/dL (3.5-5.0); POTASSIUM 5.7 mmol/L (3.5-5.1); TOTAL BILIRUBIN 0.4 mg/dL (0.20-1.00); TOTAL PROTEIN 5.7 g/dL (6.3-8.3)
[2017-03-07 17:21] LABS: INR 1.04 (0.86-1.15); PROTIME 13.9 Seconds (12.1-15.5)
[2017-03-07 17:22] LABS: PTT PL 33.1 Seconds (22.6-43.9)
[2017-03-07] MEDS ORDERED: NS 1,000 ML IV ONE (17:36)
--- NOTE | 2017-03-07 17:52 | EKG Report ---
Test Performed on : 03/07/2017 5:21:25 PM Test Reason : AMS Blood Pressure : / mmHG Vent. Rate : 064 BPM Atrial Rate : 064 BPM P-R Int : 094 ms QRS Dur : 224 ms QT Int : 490 ms P-R-T Axes : 000 -68 102 degrees QTc Int : 505 ms Sinus rhythm. with short MT Left axis deviation Left bundle branch block Abnormal ECG When compared with ECG of 15-FEB-2017 11:08, (Unconfirmed) Sinus rhythm. has replaced Electronic ventricular pacemaker Unconfirmed Result
--- NOTE | 2017-03-07 18:38 | PROVIDER DOCUMENTATION ---
This chart was entered by Ella Neves Scribe, acting as scribe for Cl Irizarry PA. HPI-General Adult - General Chief Complaint: General Adult Stated Complaint: medication problem Time Seen by Provider: 03/07/17 16:30 Source: patient, EMS Allergies/Adverse Reactions: Patient Allergies Allergy/AdvReac Type Severity Reaction Status Date / Time cyclobenzaprine HCl * Allergy Intermediate HEART RACES Verified 01/01/17 22:41 [From Flexeril] Home Medications: Home Medication List Medication Instructions Recorded Confirmed Last Taken Type Aspirin EC 81 mg PO QAM 01/01/17 02/14/17 01/01/17 History Atorvastatin Calcium 80 mg PO QHS 01/01/17 02/14/17 01/01/17 History Digoxin [Digox] 125 mcg PO DAILY 01/01/17 02/14/17 01/01/17 History Fentanyl 12 mcg TD Q3DAYS 01/01/17 02/14/17 02/13/17 History Lisinopril 20 mg PO BID 01/01/17 02/14/17 01/01/17 History Meloxicam 1 tab PO BID 01/01/17 02/14/17 01/01/17 History Metoprolol Succinate [Toprol Xl] 25 mg PO QHS 01/01/17 02/14/17 01/01/17 History Omeprazole 40 mg PO DAILY@0700 01/01/17 02/14/17 01/01/17 History Oxycodone HCl/Acetaminophen 1 tab PO Q6H PRN PRN 01/01/17 02/14/17 02/14/17 History [Percocet 7.5-325 mg Tablet] Potassium Chloride 10 meq PO DIRECTED 01/01/17 02/14/17 12/30/16 History Pregabalin [Lyrica] 75 mg PO BID 01/01/17 02/14/17 01/01/17 History Verapamil HCl [Verapamil ER] 1 tab PO BID 01/01/17 02/14/17 01/01/17 History Flecainide Acetate 50 mg PO BID 01/02/17 02/14/17 Unknown History Calcium Carb, Citrate/Vit D3 600 mg PO QAM 02/14/17 02/14/17 Unknown History [Calcium + D3 ER Tablet] Docusate Sodium [Col-Rite] 100 mg PO QAM 02/14/17 02/14/17 Unknown History Donepezil HCl 5 mg PO QPM 02/14/17 02/14/17 Unknown History Fluticasone/Vilanterol [Breo 02/14/17 Unknown History Ellipta 100-25 Mcg INH] Montelukast Sodium 10 mg PO QAM 02/14/17 02/14/17 Unknown History Polyethylene Glycol 3350 [Miralax] 17 gm PO DAILY PRN PRN 02/14/17 02/14/17 Unknown History Ropinirole HCl 0.5 mg PO QPM 02/14/17 02/14/17 Unknown History Furosemide [Lasix] 40 mg PO MoWeFrSa@0900 #30 tablet 02/16/17 Unknown Rx Spironolactone [Aldactone] 25 mg PO DAILY #30 tablet 02/16/17 Unknown Rx - History of Present Illness -Gen Adult Nature of Presenting Problems: 86 yo F presents to the ER with complaint of generalized muscle spasms. Pt was seen here x3 days ago and was told it was her medication, pt has stopped the medication but continues to have muscle spasms/tremors. Review of Systems - Adult - REVIEW OF SYSTEMS - ADULT Constitutional: reports: see anatoly ORTIZ. denies: chills Eyes: reports: no symptoms reported. denies: blurred vision, double vision Ears, Nose, Mouth & Throat: reports: no symptoms reported. denies: ear pain, nose pain Cardiovascular: reports: no symptoms reported. denies: chest pain, orthopnea Respiratory: reports: no symptoms reported. denies: cough, shortness of breath Gastrointestinal: reports: no symptoms reported. denies: abdominal pain, nausea Genitourinary: reports: urinary retention (DECREASED URINARY OUTPUT). denies: dysuria, frequent UTI's, hematuria Musculoskeletal: reports: no symptoms reported Integumentary: reports: no symptoms reported Neurological: reports: tremors Psychiatric: reports: no symptoms reported. denies: anxiety, emotional problems Endocrine: reports: no symptoms reported. denies: cold intolerance, heat intolerance Hematologic/Lymphatic: reports: no symptoms reported. denies: blood clots, low blood count Allergic/Immunologic: reports: no symptoms reported. denies: food allergy, frequent infections All Other Systems: Reviewed and Negative Past History - Adult - PAST MEDICAL HISTORY-ADULT Review of Records: reports: Old Records Reviewed, Nursing Assessment Review, Medications Reviewed, Social history reviewed & non-contributory. Major Childhood Illnesses: reports: denies history Cardiovascular: reports: cardiac disease, A-Fib, HTN, palpitations, pacemaker Respiratory: reports: denies history Gastrointestinal: reports: denies history Obstetrical/Gynecological: reports: denies history Genitourinary: reports: denies history Musculoskeletal: reports: chronic pain Neurological: reports: denies history Endocrine/Immune: reports: denies history Other Conditions: reports: denies history - PRIOR SURGERIES/PROCEDURES Surgical/Procedure History: reports: pacemaker, orthopedic (extremity) - IMMUNIZATION STATUS Childhood Immunizations: See Nurse Assessment Flu Vaccine: See Nurse Assessment - FAMILY HISTORY Family History: reviewed, not pertinent Physical Exam-General - PHYSICAL EXAM-ADULT Initial Vital Signs Reviewed: Yes - CONSTITUTIONAL General Appearance: alert, moderate distress - EYES Eyes: PERRL/EOMI, pink conjunctivae - HEAD, EARS, NOSE, MOUTH & THROAT HENMT: normocephalic/atraumatic, moist mucous membranes, normal ENT inspection - NECK Neck: normal inspection - RESPIRATORY Respiratory: chest non-tender, lungs clear, decreased breath sounds - CARDIOVASCULAR Cardiovascular: normal peripheral pulses, regular rate, rhythm - GASTROINTESTINAL (ABDOMEN) Abdominal Exam: normal bowel sounds, non tender, soft - LYMPHATIC Lymphatic: no adenopathy - MUSCULOSKELETAL Back Exam: normal inspection, no CVA tenderness, no vertebral tenderness Extremity: normal range of motion, non-tender, normal inspection - SKIN Integumentary: normal color, normal turgor, warm/dry - NEUROLOGIC Neurologic: other (FULL BODY TREMORS) Progress - PLAN OF CARE/RESULTS Progress/Plan/Lab Results: Laboratory Results - last 24 hr 03/07/17 03/07/17 03/07/17 16:30 16:48 16:48 WBC 8.55 RBC 4.11 L Hgb 12.1 Hct 35.5 L MCV 86.4 MCH 29.4 MCHC 34.1 RDW Std Deviation 14.3 Plt Count 171 MPV 9.8 Immature Gran % (Auto) 0.1 Neut % (Auto) 62.3 Lymph % (Auto) 22.3 [place] % (Auto) 11.9 H Eos % (Auto) 3.2 Baso % (Auto) 0.2 Immature Gran # (Auto) 0.01 Neut # (Auto) 5.32 Lymph # (Auto) 1.91 [place] # (Auto) 1.02 H Eos # (Auto) 0.27 Baso # (Auto) 0.02 PT INR APTT (Factor Assay) Specimen Type ARTERIAL Sample Site R BRACHIAL pH 7.35 pCO2 45 pO2 54 L HCO3 23.9 Base Excess -1.1 Oxyhemoglobin 88.9 L* ABG O2 Sat (Calculated) 15.7 ABG O2 Saturation 91.9 L ABG Carboxyhemoglobin 2.60 H ABG Methemoglobin 0.8 [place] Test NO A-a O2 Difference 39.0 Total Hemoglobin 12.6 Lactate 0.50 Blood Gas Modality ROOM AIR FiO2 % 21.0 Sodium 127 L Potassium 5.7 H Chloride 91 L Carbon Dioxide 23 L Anion Gap 14 BUN 67 H Creatinine 4.3 H Estimated GFR/1.73 m2 10 BUN/Creatinine Ratio 16 Glucose 94 Calculated Osmolality 274 Calcium 8.0 L Total Bilirubin 0.40 AST 14 ALT 9 L Alkaline Phosphatase 86 Creatine Kinase Troponin T Total Protein 5.7 L Albumin 3.3 L Globulin 2.0 Albumin/Globulin Ratio 1.0 Plasma/Serum Ethyl Alc 03/07/17 03/07/17 03/07/17 16:48 16:48 16:48 WBC RBC Hgb Hct MCV MCH MCHC RDW Std Deviation Plt Count MPV Immature Gran % (Auto) Neut % (Auto) Lymph % (Auto) [place] % (Auto) Eos % (Auto) Baso % (Auto) Immature Gran # (Auto) Neut # (Auto) Lymph # (Auto) [place] # (Auto) Eos # (Auto) Baso # (Auto) PT INR APTT (Factor Assay) Specimen Type Sample Site pH pCO2 pO2 HCO3 Base Excess Oxyhemoglobin ABG O2 Sat (Calculated) ABG O2 Saturation ABG Carboxyhemoglobin ABG Methemoglobin Eugene Test A-a O2 Difference Total Hemoglobin Lactate Blood Gas Modality FiO2 % Sodium Potassium Chloride Carbon Dioxide Anion Gap BUN Creatinine Estimated GFR/1.73 m2 BUN/Creatinine Ratio Glucose Calculated Osmolality Calcium Total Bilirubin AST ALT Alkaline Phosphatase Creatine Kinase 122 Troponin T < 0.010 Total Protein Albumin Globulin Albumin/Globulin Ratio Plasma/Serum Ethyl Alc 03/07/17 16:48 WBC RBC Hgb Hct MCV MCH MCHC RDW Std Deviation Plt Count MPV Immature Gran % (Auto) Neut % (Auto) Lymph % (Auto) [place] % (Auto) Eos % (Auto) Baso % (Auto) Immature Gran # (Auto) Neut # (Auto) Lymph # (Auto) [place] # (Auto) Eos # (Auto) Baso # (Auto) PT 13.9 INR 1.04 APTT (Factor Assay) 33.1 Specimen Type Sample Site pH pCO2 pO2 HCO3 Base Excess Oxyhemoglobin ABG O2 Sat (Calculated) ABG O2 Saturation ABG Carboxyhemoglobin ABG Methemoglobin Eugene Test A-a O2 Difference Total Hemoglobin Lactate Blood Gas Modality FiO2 % Sodium Potassium Chloride Carbon Dioxide Anion Gap BUN Creatinine Estimated GFR/1.73 m2 BUN/Creatinine Ratio Glucose Calculated Osmolality Calcium Total Bilirubin AST ALT Alkaline Phosphatase Creatine Kinase Troponin T Total Protein Albumin Globulin Albumin/Globulin Ratio Plasma/Serum Ethyl Alc Orders Category Date Time Status Saline Loc NOW Care 03/07/17 16:36 Active CHEST-1 VIEW [RAD] Stat Exams 03/07/17 16:37 Ordered HEAD W/O CONTRAST [CT] Stat Exams 03/07/17 16:37 Ordered ABG [RESP] Routine Lab 03/07/17 16:30 Completed ALCOHOL BLOOD Stat Lab 03/07/17 16:48 Completed CBC WITH ELECTRONIC DIFF [HEME] Stat Lab 03/07/17 16:48 Completed CK PROFILE [SP CHEM] Stat Lab 03/07/17 16:48 Completed CMP [COMPREHENSIVE METABOLIC PANEL] [CHEM] Stat Lab 03/07/17 16:48 Completed LACTATE, PLASMA [CHEM] Stat Lab 03/07/17 16:[address] Or[address]IME WITH INR [address] [COAG] Stat Lab 03/07/17 16:[address] [COAG] Stat Lab 03/07/17 16:48 Completed TROPONIN T Stat Lab 03/07/17 16:[address] W/POSS RFLX CULT [URINALYSIS] Stat Lab 03/07/17 16:37 Uncollected URINE DRUG SCREEN PL Stat Lab 03/07/17 16:37 Uncollected EKG [EKG] Stat Ther 03/07/17 16:37 Ordered Result Diagrams: 03/07/17 16:48 03/07/17 16:48 - EKG 1 Time of EKG reading by physician:: 17:21 EKG Read and Signed by:: Danielle Swain EKG Interpretation (*Must complete 3 of following elements*): Abnormal Rate: 64 Rhythm: sinus rhythm with short NV [place]: left QRS: LBB NV Interval: shortened ST Wave: normal Departure - Departure Date of Disposition Decision: 03/07/17 Time of Disposition Decision: 17:34 DIAGNOSIS: Hyponatremia, Dehydration Hypotension Qualifiers: Hypotension type: unspecified hypotension type Qualified Code(s): I95.9 - Hypotension, unspecified Acute renal failure (ARF) Qualifiers: Acute renal failure type: unspecified Qualified Code(s): N17.9 - Acute kidney failure, unspecified Disposition: ADMITTED INPATIENT 09 Certified Medical Emergency: Emergent Condition: Stable - Critical Care Note This patient required my direct & personal management of CC.: No Attestation - Physician/ INDY Attestation Patient care was provided by Advanced Practice Provider:: Yes Advanced Practice Provider:: Cl Irizarry Advanced Practice Provider documentation review:: The Mid-level provider documentation, treatment plan and medical decision making was reviewed by the physician who agrees with all treatment and medical decision making by the MLP. This chart was documented by the indicated scribe, (Ella Neves Scribe) and accurately reflects the services I performed and decisions made by me, Cl Irizarry PA, as attested by the provider's signature.
--- NOTE | 2017-03-07 19:11 | Diag Imaging Result Doc PS360 ---
EXAM: CHEST-1 VIEW HISTORY: AMS TECHNIQUE: Erect AP at 1911 COMMENT: The inspiration is less optimal than on 02/13/2017. There is pulmonary fibrosis. The heart size is slightly enlarged. Considering the degree of inspiration there is likely there has been no significant change. IMPRESSION: Pulmonary fibrosis and cardiomegaly. Electronically signed by Abdiel Ramos 03/07/2017 7:08 PM
--- NOTE | 2017-03-07 19:14 | Diag Imaging Result Doc PS360 ---
EXAM: HEAD W/O CONTRAST HISTORY: AMS TECHNIQUE: CT of the head without contrast COMMENT: There are small lacunae present in the basal ganglia bilaterally and extensive patchy lucencies in the white matter of both hemispheres consistent with chronic microvascular disease. There is no evidence of bleed, mass effect, or abnormal extra-axial fluid collections. There are calcifications in the internal carotid and vertebral arteries. IMPRESSION: Chronic ischemic changes. No evidence of acute disease. Electronically signed by Abdiel Ramos 03/07/2017 7:11 PM
[2017-03-07] MEDS ORDERED: LEVOPHED 8 MG in D5 1/2 NS 250 ML IV SCH (20:00)
[2017-03-07] MEDS ORDERED: NS 250 ML IV ONE (20:17)
[2017-03-07 20:50] LABS: UR AMPHETAMINES QUAL NONE DETECTED (NONE DETECT); UR BARBITUATES QUAL NONE DETECTED (NONE DETECT); UR BENZODIAZEPIN QUAL NONE DETECTED (NONE DETECT); UR COCAINE QUAL NONE DETECTED (NONE DETECT); UR MDMA QUAL NONE DETECTED (NONE DETECT); UR METHADONE QUAL NONE DETECTED (NONE DETECT); UR METHAMPHETAMINE QUAL NONE DETECTED (NONE DETECT); UR OPIATES QUAL NONE DETECTED (NONE DETECT); UR OXYCODONE QUAL PRESUMPTIVE POSITIVE (NONE DETECT); UR PCP QUAL NONE DETECTED (NONE DETECT)
[2017-03-07 20:51] LABS: UR CANNABINOIDS QUAL NONE DETECTED (NONE DETECT); UR TCA QUAL NONE DETECTED (NONE DETECT)
[2017-03-07 21:01] LABS: BILIRUBIN URINE NEGATIVE (NEGATIVE); BLOOD URINE NEGATIVE (NEGATIVE); CLARITY CLEAR (CLEAR); COLOR YELLOW; GLUCOSE URINE NEGATIVE (NEGATIVE); LEUKOCYTES URINE NEGATIVE (NEGATIVE); NITRITE URINE NEGATIVE (NEGATIVE); PROTEIN URINE TRACE mg/dL (NEGATIVE); URINE CULTURE PL NEEDED? NO; URINE SOURCE CATH; UROBILINOGEN URINE NORMAL
[2017-03-07 21:17] LABS: URINE EPITHELIAL CELLS <10 /HPF (<10); URINE RBC <10 /HPF (<10); URINE WBC <10 /HPF (<10)
[2017-03-08 08:02] LABS: AGAP 14; ALBUMIN 3.6 g/dL (3.5-5.0); ALKALINE PHOSPHATASE 99 U/L (32-104); BUN 59 mg/dL (8-22); CALCIUM 8.5 mg/dL (8.8-10.2); CHLORIDE 94 mmol/L (98-107); COSMO 280; GOT 18 U/L (10-30); GPT 9 U/L (10-36); HDL 51 mg/dL (45-65); LDL 66 mg/dL; MAGNESIUM 2.3 mg/dL (1.5-2.7); POTASSIUM 4.7 mmol/L (3.5-5.1); SODIUM 132 mmol/L (136-145); TCO2 24 mmol/L (25-35); TOTAL PROTEIN 6.4 g/dL (6.3-8.3); TRIGLYCERIDES 144 mg/dL (35-135); VLDL 29 mg/dL
[2017-03-08 08:16] LABS: HEMATOCRIT 42.3 % (37.0-47.0); HEMOGLOBIN 14.3 g/dL (12.0-16.0); MCH 28.9 PG (27-31); MCHC 33.8 g/dL (33-37); MCV 85.6 FL (81-99); MPV 10.5 FL (7.4-10.4); RBC 4.94 XMIL (4.2-5.4)
[2017-03-09] MEDS ORDERED: TYLENOL PO ONE (00:33)
[2017-03-09] MEDS ORDERED: TYLENOL ONE (01:42)
[2017-03-09] MEDS ORDERED: ZOFRAN IV PRN (06:41)
[2017-03-09] MEDS ORDERED: TYLENOL PO PRN (06:41)
[2017-03-09 06:49] LABS: HEMATOCRIT 37.2 % (37.0-47.0); HEMOGLOBIN 12.7 g/dL (12.0-16.0); MCHC 34.1 g/dL (33-37); MCV 84.9 FL (81-99); MPV 10.5 FL (7.4-10.4); RBC 4.38 XMIL (4.2-5.4)
[2017-03-09 07:03] LABS: ALBUMIN 3.3 g/dL (3.5-5.0); CALCIUM 8.7 mg/dL (8.8-10.2); POTASSIUM 4.6 mmol/L (3.5-5.1); TOTAL BILIRUBIN 0.5 mg/dL (0.20-1.00); TOTAL PROTEIN 6.2 g/dL (6.3-8.3)
[2017-03-09] MEDS: PRILOSEC PO SCH (07:39)
[2017-03-09] MEDS: NS 1,000 ML IV SCH ×2 (07:48→22:59)
--- NOTE | 2017-03-09 09:08 | PROGRESS NOTE ---
DATE: 03/09/2017 SUBJECTIVE: Patient without any new complaints. She is awake, alert this morning. OBJECTIVE: Vital signs: Temperature 98.7, pulse 65, respiratory 14, BP 183/81, saturation 100% on room air. General: Patient is awake, alert. She is disoriented. Does not follow commands. Does not answer questions. Simply stares at you when you ask a question. HEENT: Normocephalic, atraumatic. Neck: Supple. CV: Regular rate. No appreciable murmurs. Chest: Clear. Abdomen: Soft. Extremities: Moves all extremities. Neurologic: Patient is awake, alert. She is disoriented to time, person, place. She does not appear to have be extrapyramidal symptoms that she did yesterday on admit. She is not jerking, shaking. She is lying calmly in the bed. LABS: CBC normal. Sodium 135, potassium 4.6, BUN 46, creatinine 1.6. ASSESSMENT: 1. Acute renal failure, appears resolved. The patient is essentially back down to her baseline from earlier at 1.4. 2. Acute volume depletion. BUN continues to decrease. Currently down to 46. 3. Hyponatremia, resolved. 4. Hyperkalemia, resolved. 5. Dementia, Alzheimer's type, still problematic. 6. Extrapyramidal side effects from Aricept, appears resolved. PLAN: We will move the patient from the ICU to the floor and continue to follow. cc: Emmett Balderrama MD
[2017-03-09] MEDS ORDERED: PERCOCET-5 PO PRN (09:29)
[2017-03-09] MEDS ORDERED: MIRALAX PO PRN (09:29)
--- NOTE | 2017-03-09 10:46 | HISTORY AND PHYSICAL ---
CHIEF COMPLAINT: Shaking. HISTORY PRESENT ILLNESS: The patient is an 86-year-old female who unfortunately has known dementia. She presented to the emergency department on Monday, a couple days ago with shaking and jerking. Was felt to be extrapyramidal symptoms, which may have been a combination of medications. Her Requip and Aricept were both held over the weekend. The daughter notes that Ms. See may have improved slightly from the shaking, although not much. She was given Benadryl as well. Unfortunately, she slept most of the weekend. Has not been eating or drinking at this point. REVIEW OF SYSTEMS: Unobtainable from Ms. See secondary to her dementia and her current medical state. The daughter; however, denies any or GI issues, although does note she has had a great urinary output decrease over the past 24 hours. She has had a great decrease in oral intake as well. Has been sleeping more than usual. ALLERGIES: Flexeril, causing her heart to race. MEDICATIONS: Aspirin 81, Lipitor 80, digoxin 125, fentanyl 12, lisinopril 20 b.i.d., Mobic, Toprol 25, omeprazole 20, Percocet q.6h p.r.n., Lyrica 75 b.i.d., verapamil one a day, flecainide 50 b.i.d., and calcium. Aricept 5, although has been held for the past 3 days. Requip also has been held for the past 3 days. Flonase, Singulair, Lasix 40 p.r.n., and Aldactone 25 a day. PAST MEDICAL HISTORY: Atrial fibrillation, hypertension, palpitations. She has a pacemaker, chronic edema, restless leg, dementia of Alzheimer's type, chronic pain, chronic allergies, and neuropathy. FAMILY HISTORY: Noncontributory. SOCIAL HISTORY: Patient lives at home. Is cared for by her family. She does not smoke or drink. OBJECTIVE: Vital Signs: Reviewed. Temperature 98 degrees, pulse 84, respiratory 14, BP 131/76. Saturation 99% on 4 L. General: Patient is awake, alert, currently in no respiratory distress. She does not follow commands. Does not answer questions. She is constantly moving about with jerking motions. HEENT: Normocephalic, atraumatic. Neck: Supple. Cardiovascular: Regular rate. Chest: Clear. Decreased breath sounds, but equal. No wheezing. No crackles. Abdomen: Soft. Extremities: Moves all extremities. Neuro: As noted, the patient is awake and alert, but disoriented to time, person, and place. Does not answer questions. Does not follow commands. She is noted to move all 4 extremities. DIAGNOSTIC DATA: CBC normal. ABG with 88.9% sat 92.6 carboxyhemoglobin on room air. Sodium 127, potassium 5.7. BUN 67, creatinine 4.3, calcium 8.0, albumin 3.3. ASSESSMENT: 1. Acute renal failure secondary to volume depletion. 2. Value depletion secondary to decreased oral intake. 3. Hyponatremia. 4. Hyperkalemia due to acute renal failure. 5. Extrapyramidal symptoms secondary to Requip, Benadryl, and Aricept. 6. Mild protein calorie malnutrition. 7. Chronic dementia. 8. Hypertension. 9. Others. PLAN: We will admit patient to the hospital ICU. Continue to follow. Place her on IV fluids. Hold all of her medications for now, as she is not awake or alert enough to take any of them. We will continue current orders. Further orders as needed. cc: Emmett Balderrama MD
[2017-03-09] MEDS: SINGULAIR PO SCH (10:57)
[2017-03-09] MEDS: LANOXIN PO SCH (10:57)
[2017-03-09] MEDS: PRINIVIL PO SCH ×2 (10:57→21:02)
[2017-03-09] MEDS: COLACE PO SCH (10:57)
[2017-03-09] MEDS: ALDACTONE PO SCH (10:57)
[2017-03-09] MEDS: CALTRATE 600 + D PO SCH (10:57)
[2017-03-09] MEDS: ASPIRIN EC PO SCH (10:58)
[2017-03-09] MEDS: ISOPTIN SR PO SCH ×2 (10:58→21:01)
[2017-03-09] MEDS: TAMBOCOR PO SCH ×2 (11:06→21:02)
[2017-03-09] MEDS ORDERED: TOPROL XL PO SCH (21:00)
[2017-03-09] MEDS ORDERED: LIPITOR PO SCH (21:00)
[2017-03-09] MEDS ORDERED: XANAX PO ONE (21:23)
[2017-03-10 06:01] LABS: HEMATOCRIT 38.8 % (37.0-47.0); HEMOGLOBIN 13.3 g/dL (12.0-16.0); MCH 28.7 PG (27-31); MCHC 34.3 g/dL (33-37); MCV 83.8 FL (81-99); RBC 4.63 XMIL (4.2-5.4)
[2017-03-10] MEDS: PRILOSEC PO SCH (06:15)
[2017-03-10 06:33] LABS: CHLORIDE 103 mmol/L (98-107); POTASSIUM 4.5 mmol/L (3.5-5.1); SODIUM 136 mmol/L (136-145); TCO2 23 mmol/L (25-35)
[2017-03-10 06:34] LABS: AGAP 11; ALBUMIN 3.5 g/dL (3.5-5.0); ALKALINE PHOSPHATASE 94 U/L (32-104); BUN 33 mg/dL (8-22); CALCIUM 8.9 mg/dL (8.8-10.2); COSMO 280; GOT 18 U/L (10-30); GPT 8 U/L (10-36); TOTAL PROTEIN 6.2 g/dL (6.3-8.3)
[2017-03-10] MEDS ORDERED: PRILOSEC PO SCH (07:00)
[2017-03-10] MEDS: COLACE PO SCH (08:53)
[2017-03-10] MEDS: CALTRATE 600 + D PO SCH (08:53)
[2017-03-10] MEDS: ALDACTONE PO SCH (08:53)
[2017-03-10] MEDS: LANOXIN PO SCH (08:54)
[2017-03-10] MEDS: TAMBOCOR PO SCH (08:54)
[2017-03-10] MEDS: SINGULAIR PO SCH (08:55)
[2017-03-10] MEDS: ASPIRIN EC PO SCH (08:55)
[2017-03-10] MEDS: PRINIVIL PO SCH (08:55)
[2017-03-10] MEDS: ISOPTIN SR PO SCH (08:56)
[2017-03-10] MEDS ORDERED: LASIX PO SCH (09:00)
[2017-03-10] MEDS ORDERED: LYRICA PO SCH (09:00)
--- NOTE | 2017-03-10 10:42 | DISCHARGE SUMMARY ---
ADMISSION DATE: 03/07/2017 DISCHARGE DATE: 03/10/2017 DIAGNOSES: 1. Acute renal failure secondary to volume depletion. 2. Volume depletion secondary to low p.o. intake. 3. Hyponatremia, hyperkalemia, resolved. 4. Dementia, Alzheimer's type, problematic. 5. Extrapyramidal side effects from Aricept, appears resolved. DIAGNOSTICS: CT of the head revealed chronic ischemic changes with no evidence of acute disease. HOSPITAL COURSE: Ms. See presented to the emergency room for generalized shaking. She had been seen in the emergency room prior for this shaking and it was felt that this was extrapyramidal due to a combination of medications and she had held her Requip and Aricept over the weekend, although the family did not see much change in shaking. She was given Benadryl and slept. She was noted to have a creatinine of 4.3. After hydration, it is down to 1.2. The jerking and shaking have subsided. She is calm in bed. She is disoriented to person, place and time but this is her normal status per the family. PHYSICAL EXAMINATION: Cardiovascular: Regular rate and rhythm. S1 and S2 appreciated. Pulmonary: Breath sounds are clear with no increased work of breathing noted. Gastrointestinal: Soft, nontender, nondistended. Bowel sounds in all 4 quadrants. Neurologic: She is awake, alert but disoriented to time, person and place. She does not answer questions or commands. She does move all 4 extremities at random. She has no further shaking or jerking. DISCHARGE MEDICATIONS: Verapamil ER 180 b.i.d.; Aldactone 25 mg daily; Lyrica 75 mg b.i.d.; enteric-coated aspirin 81 mg daily; Lanoxin 125 mcg daily; Tambocor 50 mg b.i.d.; Lasix 40 mg Monday, Monday, Monday and Monday; lisinopril 20 mg b.i.d. ;Toprol-XL 25 mg at bedtime; Singulair 10 q.a.m.; Prilosec 40 daily; Percocet 5 one and a half every 6 hours p.r.n.; MiraLAX 17 g daily; Duragesic 12 mcg/hour patch every 3 days. We did discontinue her Requip as well as her Aricept. DISCHARGE VITAL SIGNS: Blood pressure is 153/62 with a heart rate of 62, respirations are 18, temperature is 98 degrees with room air saturations 96%. DISCHARGE ACTIVITY: Will be per physical therapy recommendations. DISCHARGE DIET: Healthy heart. She is being discharged to rehab in stable condition. Family members are present. TIME SPENT: This is a greater than 30 minute discharge. Dictated by SHREYAS Lakhani for Emmett Balderrama MD cc: SHREYAS Lakhani MD
[2017-03-10 12:35] VITALS: BP 154/64
[2017-03-12] MEDS ORDERED: DURAGESIC 12 MICROGM/HR PATCH TD SCH (06:00)
== END 2017-03-10 14:35 ==
LOC: P.ED 16:10 → P.ICU 19:16 → P.MEDSURG 03-09 09:26
PROVIDERS: ATTEND Family Medicine

== ENCOUNTER 2017-04-03 13:42 | Inpatient (IN) ==
[2017-04-03 15:12] LABS: BILIRUBIN URINE NEGATIVE (NEGATIVE); BLOOD URINE NEGATIVE (NEGATIVE); CLARITY SL. CLOUDY (CLEAR); COLOR YELLOW; GLUCOSE URINE NEGATIVE (NEGATIVE); LEUKOCYTES URINE 2+ (NEGATIVE); NITRITE URINE NEGATIVE (NEGATIVE); PROTEIN URINE NEGATIVE (NEGATIVE); SP GRAVITY URINE 1.015; UROBILINOGEN URINE NORMAL
[2017-04-03 15:15] LABS: URINE CAST NONE SEEN /LPF; URINE CRYSTAL NONE SEEN /HPF; URINE CULTURE PL NEEDED? YES; URINE EPITHELIAL CELLS <10 /HPF (<10); URINE SOURCE CATH
[2017-04-03 15:17] LABS: MANUAL DIFF NEEDED? NO
[2017-04-03 15:21] LABS: BASO% 0.1 % (0.0-0.8); EOS# 0.13 X1000 (0.0-0.7); EOS% 1.4 % (0.0-10.0); HEMATOCRIT 32.8 % (37.0-47.0); HEMOGLOBIN 11.2 g/dL (12.0-16.0); IMM GRAN# 0.01 X1000 (0.0-0.04); IMM GRAN% 0.1 % (0.0-0.5); LYMPH# 1.38 X1000 (1.2-3.4); LYMPH% 14.5 % (20.5-51.1); MCH 29.2 PG (27-31); MCHC 34.1 g/dL (33-37); MCV 85.4 FL (81-99); MONO# 0.98 X1000 (0.11-0.59); MONO% 10.3 % (1.7-9.3); NEUT% 73.6 % (42.2-75.2); PLT 195 X1000 (130-400); RBC 3.84 XMIL (4.2-5.4)
[2017-04-03] MEDS ORDERED: NS 500 ML IV ONE (15:46)
[2017-04-03] MEDS ORDERED: NS 500 ML ONE (15:46)
[2017-04-03 15:51] LABS: ALBUMIN 3.4 g/dL (3.5-5.0); CALCIUM 8.2 mg/dL (8.8-10.2); TOTAL BILIRUBIN 0.4 mg/dL (0.20-1.00)
[2017-04-03] MEDS ORDERED: HUMULIN R (PARKWAY) IV ONE (16:02)
[2017-04-03] MEDS ORDERED: D50W SYRINGE IV ONE (16:02)
[2017-04-03] MEDS ORDERED: CALCIUM CHLORIDE SYRINGE IV ONE (16:02)
[2017-04-03] MEDS ORDERED: NS 50 ML ONE (16:17)
--- NOTE | 2017-04-03 19:33 | EKG Report ---
Test Performed on : 04/03/2017 7:16:10 PM Test Reason : ADMISSION Blood Pressure : / mmHG Vent. Rate : 061 BPM Atrial Rate : 061 BPM P-R Int : 080 ms QRS Dur : 180 ms QT Int : 454 ms P-R-T Axes : 000 -59 112 degrees QTc Int : 457 ms Sinus rhythm. with short ID Left axis deviation Left bundle branch block Abnormal ECG When compared with ECG of 07-MAR-2017 17:21, QRS duration has decreased Unconfirmed Result
--- NOTE | 2017-04-03 19:58 | ED EKG INTERP ---
This chart was entered by Nadia Yao Scribe, acting as scribe for Felix Burleson MD. EKG Interpretation - EKG Time of EKG reading by physician:: 19:16 EKG Read and Signed by:: Felix Burleson EKG Interpretation (*Must complete 3 of following elements*): Abnormal Rate: 61 Rhythm: sinus rhythm with short [place]: left QRS: LBB This chart was documented by the indicated scribe, (Nadia Yao Scribe) and accurately reflects the services I performed and decisions made by me, Felix Burleson MD, as attested by the provider's signature.
--- NOTE | 2017-04-03 20:15 | SEPSIS: TISSUE PERFUSION ASSMT ---
Sepsis: Tissue Perfusion Assmt - Physical Exam Vital Signs: Last Vital Signs Temp 98.2 F 04/03/17 15:34 Pulse 60 04/03/17 20:04 Resp 14 04/03/17 20:04 BP 108/50 04/03/17 20:04 Pulse Ox 100 04/03/17 20:04
--- NOTE | 2017-04-03 20:18 | PROVIDER DOCUMENTATION ---
HPI-General Adult - General Chief Complaint: Fall Stated Complaint: Fall Time Seen by Provider: 04/03/17 13:58 Source: patient, family Allergies/Adverse Reactions: Patient Allergies Allergy/AdvReac Type Severity Reaction Status Date / Time cyclobenzaprine HCl * Allergy Intermediate HEART RACES Verified 01/01/17 22:41 [From Flexeril] Home Medications: Home Medication List Medication Instructions Recorded Confirmed Last Taken Type Aspirin EC 81 mg PO QAM 01/01/17 04/04/17 01/01/17 History Atorvastatin Calcium 80 mg PO QHS 01/01/17 04/04/17 01/01/17 History Digoxin [Digox] 125 mcg PO DAILY 01/01/17 04/04/17 01/01/17 History Lisinopril 20 mg PO BID 01/01/17 04/04/17 01/01/17 History Metoprolol Succinate [Toprol Xl] 25 mg PO QHS 01/01/17 04/04/17 01/01/17 History Omeprazole 40 mg PO DAILY@0700 01/01/17 04/04/17 01/01/17 History Potassium Chloride 10 meq PO DIRECTED 01/01/17 04/04/17 12/30/16 History Pregabalin [Lyrica] 75 mg PO BID 01/01/17 04/04/17 01/01/17 History Verapamil HCl [Verapamil ER] 1 tab PO BID 01/01/17 04/04/17 01/01/17 History Flecainide Acetate 50 mg PO BID 01/02/17 04/04/17 Unknown History Calcium Carb, Citrate/Vit D3 600 mg PO QAM 02/14/17 04/04/17 Unknown History [Calcium + D3 ER Tablet] Docusate Sodium [Col-Rite] 100 mg PO QAM 02/14/17 04/04/17 Unknown History Montelukast Sodium 10 mg PO QAM 02/14/17 04/04/17 Unknown History Polyethylene Glycol 3350 [Miralax] 17 gm PO DAILY PRN PRN 02/14/17 04/04/17 Unknown History Furosemide [Lasix] 40 mg PO MoWeFrSa@0900 #30 tablet 02/16/17 04/04/17 Unknown Rx Spironolactone [Aldactone] 25 mg PO DAILY #30 tablet 02/16/17 04/04/17 Unknown Rx Fentanyl 12 mcg TD Q3DAYS #10 patch.td72 03/10/17 04/04/17 Unknown Rx Oxycodone HCl/Acetaminophen 1 tab PO Q6H PRN PRN #60 tablet 03/10/17 04/04/17 Unknown Rx [Percocet 7.5-325 mg Tablet] - History of Present Illness -Gen Adult Nature of Presenting Problems: 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 STS WAS IN THE NEXT ROOM WHEN SHE HEARD A "THUMP" AND CAME IN TO FIND PT SITTING IN THE FLOOR. PT DENIES PAIN AND DAUGHTER SAID SHE COULD FIND NO OBVIOUS SIGNS OF INJURY. STS SHE WAS D/C'D FROM REHAB RECENTLY AND CONTINUES TO BE WEAK AND UNABLE TO CARE FOR HERSELF. HX OF DEMENTIA. RECENTLY TREATED FOR UTI. Location of Pain/Injury: reports: none Associated Symptoms: reports: genitourinary problems, weakness Similar Symptoms Previously?: Yes Recently seen or treated by another doctor?: Yes Review of Systems - Adult - REVIEW OF SYSTEMS - ADULT ROS:: ROS per family (PT WITH DEMENTIA) Constitutional: reports: no symptoms reported. denies: fever Eyes: reports: no symptoms reported Ears, Nose, Mouth & Throat: reports: no symptoms reported Cardiovascular: reports: no symptoms reported. denies: syncope Respiratory: reports: no symptoms reported. denies: shortness of breath Gastrointestinal: reports: no symptoms reported Genitourinary: reports: see HPI, frequent UTI's Musculoskeletal: reports: see HPI, muscle weakness Integumentary: reports: no symptoms reported Neurological: reports: no symptoms reported Psychiatric: reports: no symptoms reported Endocrine: reports: no symptoms reported Hematologic/Lymphatic: reports: no symptoms reported Allergic/Immunologic: reports: no symptoms reported All Other Systems: Reviewed and Negative Past History - Adult - PAST MEDICAL HISTORY-ADULT Review of Records: reports: Nursing Assessment Review, Medications Reviewed, Social history reviewed & non-contributory. Major Childhood Illnesses: reports: denies history Cardiovascular: reports: cardiac disease, A-Fib, HTN, palpitations, pacemaker Respiratory: reports: COPD Gastrointestinal: reports: denies history Obstetrical/Gynecological: reports: denies history Genitourinary: reports: denies history Musculoskeletal: reports: chronic pain Neurological: reports: dementia Endocrine/Immune: reports: denies history Other Conditions: reports: denies history - PRIOR SURGERIES/PROCEDURES Surgical/Procedure History: reports: pacemaker, orthopedic (extremity), joint replacement - IMMUNIZATION STATUS Childhood Immunizations: See Nurse Assessment Flu Vaccine: See Nurse Assessment - FAMILY HISTORY Family History: reviewed, not pertinent Physical Exam-General - PHYSICAL EXAM-ADULT Initial Vital Signs Reviewed: Yes - CONSTITUTIONAL General Appearance: appears well, alert, no apparent distress - EYES Eyes: PERRL/EOMI - HEAD, EARS, NOSE, MOUTH & THROAT HENMT: normocephalic/atraumatic, moist mucous membranes - NECK Neck: non-tender, full range of motion, supple, normal inspection - RESPIRATORY Respiratory: chest non-tender, lungs clear, normal breath sounds, no pleuratic chest pain, no respiratory distress, no accessory muscle use - CARDIOVASCULAR Cardiovascular: normal peripheral pulses, regular rate, rhythm - GASTROINTESTINAL (ABDOMEN) Abdominal Exam: normal bowel sounds, non tender, soft, no organomegaly, no pulsatile mass - MUSCULOSKELETAL Back Exam: normal inspection, no CVA tenderness, no vertebral tenderness. negative: ecchymosis, swelling Extremity: normal range of motion, non-tender, normal inspection, normal capillary refill - SKIN Integumentary: normal turgor, warm/dry. negative: normal color (PALE) - NEUROLOGIC Neurologic: grossly normal - PSYCHIATRIC Psych/Mental Status: other (SMILING, ORIENTED TO PERSON ONLY. ANNSWERS "NO" TO NEARLY ALL QUESTIONS.). negative: oriented x 3 Progress - PLAN OF CARE/RESULTS Progress/Plan/Lab Results: Vital Signs - 8 hr 04/03/17 13:45 04/03/17 15:34 04/03/17 16:01 Temperature 97.7 F 98.2 F Pulse Rate 74 66 60 Respiratory Rate 18 18 13 Blood Pressure 101/66 85/56 98/49 O2 Sat by Pulse Oximetry 91 L 92 L 98 04/03/17 16:04 04/03/17 16:15 04/03/17 16:25 Temperature Pulse Rate 60 60 60 Respiratory Rate 15 14 14 Blood Pressure 95/51 101/52 91/46 O2 Sat by Pulse Oximetry 99 98 97 04/03/17 16:42 04/03/17 16:45 04/03/17 16:50 Temperature Pulse Rate 61 60 60 Respiratory Rate 12 17 14 Blood Pressure 105/47 101/51 96/47 O2 Sat by Pulse Oximetry 99 98 99 04/03/17 16:55 Temperature Pulse Rate 62 Respiratory Rate 13 Blood Pressure 109/52 O2 Sat by Pulse Oximetry 99 Laboratory Results - last 24 hr 04/03/17 04/03/17 04/03/17 13:50 15:00 15:06 WBC 9.52 RBC 3.84 L Hgb 11.2 L Hct 32.8 L MCV 85.4 MCH 29.2 MCHC 34.1 RDW Std Deviation 14.6 H Plt Count 195 MPV 10.0 Immature Gran % (Auto) 0.1 Neut % (Auto) 73.6 Lymph % (Auto) 14.5 L [place] % (Auto) 10.3 H Eos % (Auto) 1.4 Baso % (Auto) 0.1 Immature Gran # (Auto) 0.01 Neut # (Auto) 7.01 H Lymph # (Auto) 1.38 [place] # (Auto) 0.98 H Eos # (Auto) 0.13 Baso # (Auto) 0.01 Sodium Potassium Chloride Carbon Dioxide Anion Gap BUN Creatinine Estimated GFR/1.73 m2 BUN/Creatinine Ratio Glucose POC Glucose 111 H Calculated Osmolality Calcium Total Bilirubin AST ALT Alkaline Phosphatase Total Protein Albumin Globulin Albumin/Globulin Ratio Urine Source CATH Urine Color YELLOW Urine Clarity SL. CLOUDY A Urine pH 5.0 Ur Specific [place] 1.015 Urine Protein NEGATIVE Urine Ketones NEGATIVE Urine Blood NEGATIVE Urine Nitrite NEGATIVE Urine Bilirubin NEGATIVE Urine Urobilinogen NORMAL Urine Microscopic RBC Not Reportable Urine WBC 2+ A Urine Microscopic WBC 10-20 A Ur Epithelial Cells <10 Urine Crystals NONE SEEN Urine Bacteria 2+ Urine Casts NONE SEEN Urine Yeast NONE SEEN Urine Glucose NEGATIVE 04/03/17 15:06 WBC RBC Hgb Hct MCV MCH MCHC RDW Std Deviation Plt Count MPV Immature Gran % (Auto) Neut % (Auto) Lymph % (Auto) [place] % (Auto) Eos % (Auto) Baso % (Auto) Immature Gran # (Auto) Neut # (Auto) Lymph # (Auto) [place] # (Auto) Eos # (Auto) Baso # (Auto) Sodium 126 L Potassium 6.0 H* Chloride 91 L Carbon Dioxide 26 Anion Gap 9 BUN 37 H Creatinine 2.5 H Estimated GFR/1.73 m2 18 BUN/Creatinine Ratio 15 Glucose 111 H POC Glucose Calculated Osmolality 263 Calcium 8.2 L Total Bilirubin 0.40 AST 17 ALT 11 Alkaline Phosphatase 85 Total Protein 6.0 L Albumin 3.4 L Globulin 3.0 Albumin/Globulin Ratio 1.0 Urine Source Urine Color Urine Clarity Urine pH Ur Specific [place] Urine Protein Urine Ketones Urine Blood Urine Nitrite Urine Bilirubin Urine Urobilinogen Urine Microscopic RBC Urine WBC Urine Microscopic WBC Ur Epithelial Cells Urine Crystals Urine Bacteria Urine Casts Urine Yeast Urine Glucose Orders Category Date Time Status Admit - [facility] Routine AdmDCTranf 04/03/17 16:03 Ordered Activity - Bed Rest with BRP ORDERED Care 04/03/17 16:03 Active Call Admitting on Arrival AT ADMISSION Care 04/03/17 16:04 Active Oxygen Therapy- ED Nursing DIRECTED Care 04/03/17 15:46 Active Saline Loc NOW Care 04/03/17 14:59 Active Vital Signs Order ROUTINE Care 04/03/17 16:03 Active Z-Document. for Tele Applied ORDERED Care 04/03/17 16:06 Active Heart Healthy Diet Diet 04/03/17 16:06 Active CBC WITH ELECTRONIC DIFF [HEME] Stat Lab 04/03/17 15:06 Completed COMPREHENSIVE METABOLIC PANEL [CHEM] Stat Lab 04/03/17 15:[address] W/POSS RFLX CULT [URINALYSIS] Stat Lab 04/03/17 15:00 Completed URINE CULTURE [RM] Routine Lab 04/03/17 15:15 Received 0.9% Sodium Chloride Inj [Ns] 50 ml Med 04/03/17 16:17 Discontinued .ROUTE As Directed 0.9% Sodium Chloride Inj [Ns] 500 ml Med 04/03/17 15:46 Discontinued .ROUTE As Directed 0.9% Sodium Chloride Inj [Ns] 500 ml Med 04/03/17 15:46 Discontinued IV 999 mls/hr Calcium Chloride Syringe Med 04/03/17 16:02 Discontinued 1 gm IV NOW ONE Dextrose 50% Syringe [D50w Syringe] Med 04/03/17 16:02 Discontinued 50 ml IV NOW ONE Insulin Human Regular (Terral [Humulin R (Terral)] Med 04/03/17 16:02 Discontinued 10 units IV NOW ONE Telemetry [OM.EQ] Routine Oth 04/03/17 16:03 Active Transfer/Admit Order [TRANSFER] Routine Transfer 04/03/17 16:06 Ordered DISCUSSED PT LABS, EXAM, AND PLAN OF CARE WITH DR. CARPIO WHO AGREES WITH PLAN TO CONSULT HOSPITALIST FOR ADMIT. Result Diagrams: 04/05/17 04:00 04/05/17 04:00 - CONSULTS/PCP/HOSPITALIST Notification #1 *Consult/PCP/Hospitalist*: DR. SOSA Time Discussed: 16:00 (ADMIT FOR HYPERKALEMIA, WEAKNESS.) Consult Disposition: Admit Departure - Departure Date of Disposition Decision: 04/03/17 Time of Disposition Decision: 16:00 DIAGNOSIS: Hyperkalemia, Weakness Disposition: ADMITTED INPATIENT 09 Certified Medical Emergency: Emergent Condition: Good - Critical Care Note This patient required my direct & personal management of CC.: No Attestation - Physician/ INDY Attestation Patient care was provided by Advanced Practice Provider:: Yes Advanced Practice Provider:: Yu Novak Advanced Practice Provider documentation review:: The Mid-level provider documentation, treatment plan and medical decision making was reviewed by the physician who agrees with all treatment and medical decision making by the MLP.
[2017-04-03] MEDS ORDERED: TYLENOL PO PRN (21:40)
[2017-04-03] MEDS ORDERED: ZOFRAN IV PRN (21:40)
[2017-04-03] MEDS ORDERED: SODIUM CHLORIDE 0.9% INJ SCH (21:45)
[2017-04-03 21:47] LABS: CALCIUM 8.7 mg/dL (8.8-10.2); POTASSIUM 5.1 mmol/L (3.5-5.1); TOTAL BILIRUBIN 0.4 mg/dL (0.20-1.00); TOTAL PROTEIN 5.3 g/dL (6.3-8.3)
[2017-04-03] MEDS: NS 1,000 ML IV SCH (22:41)
[2017-04-03] MEDS: PROTONIX IV SCH (22:42)
[2017-04-03] MEDS ORDERED: NS 1,000 ML ONE (22:51)
[2017-04-04 06:52] LABS: MCH 28.6 PG (27-31); MCHC 33.3 g/dL (33-37); MCV 85.7 FL (81-99); MPV 10.6 FL (7.4-10.4); RBC 3.85 XMIL (4.2-5.4)
[2017-04-04 07:04] LABS: ALBUMIN 3.2 g/dL (3.5-5.0); CALCIUM 8.7 mg/dL (8.8-10.2); MAGNESIUM 1.9 mg/dL (1.5-2.7); POTASSIUM 4.5 mmol/L (3.5-5.1); TOTAL BILIRUBIN 0.5 mg/dL (0.20-1.00); TOTAL PROTEIN 5.9 g/dL (6.3-8.3)
[2017-04-04] MEDS: NS 1,000 ML IV SCH (11:52)
--- NOTE | 2017-04-04 16:46 | HISTORY AND PHYSICAL ---
PRIMARY CARE PHYSICIAN: Dr. Emmett Balderrama. CHIEF COMPLAINT: Fall. HISTORY OF PRESENT ILLNESS: This is an 86-year-old female who presented to the emergency room after a fall. The patient has dementia and therefore she is unable to give any history. The daughter is present. She states that the patient fell from a standing position. She was standing still. She does not feel the patient tripped. The patient has denied any pain or injury. The daughter wanted the patient evaluated. She does state that the patient just got out of rehab recently and she feels that she continues to be weak with difficulty holding her weight. The daughter states "her legs keep giving out on her." She was found to have a potassium of 6 with a creatinine of 2.5 as well as a sodium of 126. She was given a L of saline along with insulin D50 and calcium chloride in the emergency room and admitted to ICU for further evaluation and treatment. PAST MEDICAL HISTORY: Atrial fibrillation, on chronic anticoagulation. Hypertension, palpitations, chronic lower extremity edema, restless legs syndrome dementia of Alzheimer's type, chronic pain, neuropathy. PAST SURGICAL HISTORY: Pacemaker placement. SOCIAL HISTORY: They deny alcohol, tobacco or illicit drug use. ALLERGIES: According to the chart, Flexeril which causes her heart to race. HOME MEDICATIONS: A list will be obtained. REVIEW OF SYSTEMS: Unable to obtain from the patient due to her mental status. PHYSICAL EXAMINATION: VITAL SIGNS: Blood pressure is 92/51 with a heart rate of 60, respirations are 16, temperature is 97.6 degrees, to 98.2 degrees with O2 saturations of 98-100% on 2 L nasal cannula. HEENT: Head is normocephalic, atraumatic. Pupils equal, round, react to light. EOMs are intact. Sclerae anicteric. Mucous membranes are dry. NECK: Supple. Trachea midline. CARDIOVASCULAR: Regular rate and rhythm. S1, S2 appreciated. PULMONARY: Breath sounds are clear with no increased work of breathing noted. Chest does rise and fall symmetrically with respiration. GASTROINTESTINAL: Abdomen is soft, nontender, nondistended with bowel sounds in all 4 quadrants. EXTREMITIES: No clubbing, cyanosis, or edema with pulses palpable x4. NEUROLOGIC: She is alert and awake. She is disoriented to time, person and place. She does not answer questions. She does not follow commands. She does move all extremities at random. DIAGNOSTICS: WBC is 9.5 with hemoglobin 11.2, hematocrit 32.8 and platelets of 195,000. Sodium is 126, potassium 6, BUN 37, creatinine 2.5 with a glucose of 111. Urinalysis is essentially negative. ASSESSMENT AND PLAN: 1. Hyperkalemia. 2. Acute kidney injury most likely secondary to her decreased p.o. intake. 3. Hyponatremia. 4. Hypotension. 5. Volume depletion secondary to decreased oral intake. 6. Mild protein calorie malnutrition. 7. Chronic dementia. 8. History of hypertension although the patient is hypotensive. PLAN: She will be admitted to ICU, placed on telemetry. We will monitor electrolytes. We will identify her home medications. Hold any potassium containing medications as well as any renal toxic medications. We will hold any antihypertensive medications. We will consult physical therapy. We will get gentle hydration. Further treatment pending hospital course. Dictated by SHREYAS Lakhani for Emmett Balderrama MD cc: SHREYAS Lakhani MD
[2017-04-04] MEDS: PROTONIX IV SCH (20:17)
[2017-04-04] MEDS: ROCEPHIN 1 GM/NS 1 GM/50 ML IVPB IV SCH (20:17)
[2017-04-05] MEDS: NS 1,000 ML IV SCH
[2017-04-05 05:46] LABS: HEMATOCRIT 31.2 % (37.0-47.0); HEMOGLOBIN 10.4 g/dL (12.0-16.0); MCH 28.3 PG (27-31); MCHC 33.3 g/dL (33-37); MCV 84.8 FL (81-99); MPV 10.4 FL (7.4-10.4); RBC 3.68 XMIL (4.2-5.4)
[2017-04-05 06:02] LABS: CALCIUM 8.4 mg/dL (8.8-10.2); POTASSIUM 4.6 mmol/L (3.5-5.1)
[2017-04-05] MEDS ORDERED: PERCOCET-5 PO PRN (08:18)
[2017-04-05] MEDS ORDERED: MIRALAX PO PRN (08:18)
[2017-04-05] MEDS ORDERED: CALTRATE 600 + D PO SCH (09:00)
[2017-04-05] MEDS: SINGULAIR PO SCH (10:04)
[2017-04-05] MEDS: KLOR-CON PO SCH (10:04)
[2017-04-05] MEDS: ALDACTONE PO SCH (10:04)
[2017-04-05] MEDS: LYRICA PO SCH ×2 (10:04→21:06)
[2017-04-05] MEDS: LANOXIN PO SCH (10:05)
[2017-04-05] MEDS: COLACE PO SCH (10:05)
[2017-04-05] MEDS: TAMBOCOR PO SCH ×2 (10:05→21:04)
[2017-04-05] MEDS: ASPIRIN EC PO SCH (10:05)
[2017-04-05] MEDS: ISOPTIN SR PO SCH ×2 (10:05→21:05)
[2017-04-05] MEDS: LASIX PO SCH (10:05)
[2017-04-05] MEDS: PROTONIX IV SCH (21:03)
[2017-04-05] MEDS: TOPROL XL PO SCH (21:04)
[2017-04-05] MEDS: ROCEPHIN 1 GM/NS 1 GM/50 ML IVPB IV SCH (21:04)
[2017-04-05] MEDS: LIPITOR PO SCH (21:06)
[2017-04-06] MEDS: PRILOSEC PO SCH (06:14)
[2017-04-06] MEDS: SINGULAIR PO SCH (09:12)
[2017-04-06] MEDS: COLACE PO SCH (09:12)
[2017-04-06] MEDS: ALDACTONE PO SCH (09:12)
[2017-04-06] MEDS: CALTRATE 600 + D PO SCH ×2 (09:12→20:23)
[2017-04-06] MEDS: ASPIRIN EC PO SCH (09:13)
[2017-04-06] MEDS: TAMBOCOR PO SCH ×2 (09:13→20:20)
[2017-04-06] MEDS: LYRICA PO SCH ×2 (09:13→20:23)
[2017-04-06] MEDS: PRINIVIL PO SCH ×2 (09:14→20:23)
[2017-04-06] MEDS: LANOXIN PO SCH (09:16)
[2017-04-06] MEDS: ISOPTIN SR PO SCH ×2 (09:17→20:22)
--- NOTE | 2017-04-06 09:31 | PROGRESS NOTE ---
DATE: 04/05/2017 SUBJECTIVE: This patient is much more awake this morning. She states she is feeling better. She still complains of hurting in her leg. She states overall she does not feel "great." PHYSICAL EXAMINATION: She is afebrile. Pulse 60, respiratory rate 13, BP improved 93/43 to 103/57.General: Patient is much more awake, alert. She is more oriented although easily disoriented secondary to her chronic dementia. HEENT: Normocephalic, atraumatic. ANGEL. Neck: Supple. CV: Regular rate. Chest: Clear. Abdomen: Soft. Extremities: Moves all extremities. Neurologic: No focal changes. LABS: CBC normal. Sodium 133 potassium 4.6, creatinine 1.3, calcium 8.7. ASSESSMENT: 1. Hypocalcemia, will replace and continue to recheck. 2. Acute on chronic renal failure. She is back to her baseline. 3. Metabolic encephalopathy secondary to a urinary tract infection, improving. 4. Urinary tract infection. We will continue Rocephin, await culture results. 5. Chronic pain. The patient's blood pressures are better. We will attempt to restart her fentanyl patch as this certainly will take a few days to become effective. We will restart her flecainide, digoxin and metoprolol tonight; however, will hold her JONATHAN inhibitor one more day. PLAN: As noted above. We will attempt to move her out of the ICU later this afternoon. cc: Emmett Balderrama MD
--- NOTE | 2017-04-06 09:31 | PROGRESS NOTE ---
DATE: 04/04/2017 SUBJECTIVE: Patient is still confused, disoriented. She does awaken but does not follow commands. PHYSICAL: Temperature 98, pulse 60, respiratory 12, BP 87/44 to 92/51. Saturation 100% on 2 L. General: Patient is lying flat in the bed. She is currently in no respiratory distress. She does awaken to stimuli but does not stay awake. Will turn to voice but is disoriented to person, place, and time.HEENT: Normocephalic, atraumatic. Neck: Supple. CV: Regular rate. Chest: Clear. Abdomen: Soft, appears nondistended. Does not appear to have flank pain. Extremities: The patient is noted to move all extremities. Neurologic: Patient does not follow commands although she is noted to move all extremities. LABORATORY DATA: WBC 7, hemoglobin and hematocrit 11 and 33. Sodium 131, creatinine 2.0, albumin 3.2. ASSESSMENT: 1. Mild protein calorie malnutrition. 2. Vzukg-pv-[place] renal failure. 3. Hyponatremia. 4. Acute metabolic encephalopathy. 5. Hypotension in a patient with known hypertension. 6. Restless leg syndrome. 7. 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 8. Chronic neuropathy with chronic pain. 9. Hyperkalemia, resolved. 10. Volume depletion secondary to decreased oral intake. 11. Presumed urinary tract infection causing the metabolic encephalopathy. PLAN: We will continue antibiotics. We will continue IV fluids. We will keep her in the ICU today. We will follow her blood pressures. We will not restart her blood pressure medications currently as her blood pressure is still low in the 80s and 90s systolic. We will continue to leave fentanyl patch off as this certainly could have contributed to her hypotension. cc: Emmett Balderrama MD
--- NOTE | 2017-04-06 09:35 | PROGRESS NOTE ---
DATE: 04/06/2017 SUBJECTIVE: The patient is back to her baseline mental status. She is awake, alert. She complains of pain in her right lower extremity; otherwise, denies any complications or other complaints. Denies any GI or issues presently. PHYSICAL EXAMINATION: Temperature 98.0, pulse , respiratory rate 18, BP 128/61 to 159/67, saturation 98% on 2 L.General: Patient is awake, alert. She is currently in no respiratory distress. Neck: Supple. HEENT: Normocephalic, atraumatic, ANGEL. Neck is supple. CV: Regular rate. Chest: Clear. Abdomen: Soft. Extremities: Moves all extremities. Neurologic: No focal changes. Skin: Warm and dry. No rashes. LABS: E. coli, UTI, mckeon sensitive. ASSESSMENT: 1. Escherichia Coli urinary tract infection. Will continue Rocephin today. We will consider changing to either Levaquin or Bactrim in the a.m. 2. Hypertension. The patient's blood pressures are much better. I restarted her Verapamil yesterday as well as her fentanyl patch and flecainide. Today her kidney function is improved. Will restart her lisinopril and will follow. 3. Hyponatremia resolved. Hypotension resolved. Hypokalemia. Will replace, volume depletion resolved. Mild protein calorie malnutrition. 4. Chronic Alzheimer's type dementia. PLAN: Unfortunately, medication effect certainly is problematic in the patient as she very well may be over using or over taking her medications unintentionally. We will continue to follow. Further orders as needed. cc: Emmett Balderrama MD
[2017-04-06] MEDS: LIPITOR PO SCH (20:21)
[2017-04-06] MEDS: TOPROL XL PO SCH (20:23)
[2017-04-06] MEDS: NAMENDA PO SCH (20:23)
[2017-04-06] MEDS: ROCEPHIN 1 GM/NS 1 GM/50 ML IVPB IV SCH (21:29)
[2017-04-07 06:27] LABS: HEMATOCRIT 32.9 % (37.0-47.0); HEMOGLOBIN 11.3 g/dL (12.0-16.0); MCH 28.5 PG (27-31); MCHC 34.3 g/dL (33-37); MCV 83.1 FL (81-99); MPV 10.4 FL (7.4-10.4); RBC 3.96 XMIL (4.2-5.4)
[2017-04-07 06:56] LABS: ALBUMIN 3.4 g/dL (3.5-5.0); MAGNESIUM 1.6 mg/dL (1.5-2.7); POTASSIUM 4.6 mmol/L (3.5-5.1); TOTAL BILIRUBIN 0.5 mg/dL (0.20-1.00); TOTAL PROTEIN 5.9 g/dL (6.3-8.3)
[2017-04-07] MEDS ORDERED: LEVAQUIN PO SCH (09:00)
[2017-04-07] MEDS: COLACE PO SCH (09:01)
[2017-04-07] MEDS: ASPIRIN EC PO SCH (09:01)
[2017-04-07] MEDS: SINGULAIR PO SCH (09:02)
[2017-04-07] MEDS: LASIX PO SCH (09:02)
[2017-04-07] MEDS: ALDACTONE PO SCH (09:02)
[2017-04-07] MEDS: PRILOSEC PO SCH (09:02)
[2017-04-07] MEDS: KLOR-CON PO SCH (09:02)
[2017-04-07] MEDS: CALTRATE 600 + D PO SCH (09:02)
[2017-04-07] MEDS: PRINIVIL PO SCH (09:03)
[2017-04-07] MEDS: NAMENDA PO SCH (09:03)
[2017-04-07] MEDS: ISOPTIN SR PO SCH (09:04)
[2017-04-07] MEDS: LYRICA PO SCH (09:04)
[2017-04-07] MEDS: TAMBOCOR PO SCH (09:05)
[2017-04-07] MEDS: LANOXIN PO SCH (09:08)
--- NOTE | 2017-04-07 10:07 | Diag Imaging Result Doc PS360 ---
EXAM: CHEST-PORTABLE HISTORY: residential placement TECHNIQUE: Portable chest COMPARISON: 03/07/2017 FINDINGS: There is a left-sided pacemaker. Prior orthopedic replacement of the right shoulder. Poor inspiratory effort. Heart is not enlarged. No pleural effusions identified. Mild increased markings in the lower lungs are similar to that of the prior exam. IMPRESSION: Stable chest Electronically signed by Imer Javier 04/07/2017 10:04 AM
--- NOTE | 2017-04-07 11:38 | DISCHARGE SUMMARY ---
ADMISSION DATE: 04/05/2017 DISCHARGE DATE: 04/07/2017 DIAGNOSES: 1. Escherichia coli urinary tract infection. 2. Hypertension. 3. Hyponatremia. Resolved. 4. Chronic Alzheimer's type dementia. 5. Acute kidney injury. Resolved. 6. Atrial fibrillation on chronic anticoagulation. DIAGNOSTICS: 04/07/2017, chest x-ray revealed left-sided pacemaker, orthopedic replacement of the right shoulder, poor inspiratory effort. Heart is not enlarged. No pleural effusions identified. Increased markings in the lower lungs which are stable from prior exams. Microbiology, Escherichia coli urinary tract infection. HOSPITAL COURSE: Ms. See presented to the emergency room after having frequent falls as well as increase in her confusion. She was found to have an E. coli UTI for which she is being treated with Levaquin. Mentation has returned to her baseline per her family. She was found to have volume depletion with blood pressures running in the 80s to 90s. We did hydrate. Blood pressures have been in the 100-130s over 60s and 70s range. We did trend her electrolytes and replete as appropriate. Thankfully, she has returned to her baseline and she is ready to be discharged to rehab. PHYSICAL EXAMINATION: Cardiovascular: She has 100% paced. Pulmonary: Breath sounds are clear with no increased work of breathing noted. Gastrointestinal: Abdomen is soft, nontender, nondistended. Bowel sounds in all 4 quadrants. Extremities: No clubbing, cyanosis or edema. Calves are nontender. Pulses are palpable x4. Neurologic: She is awake. She is alert. She is oriented to herself and that she is at a hospital although she cannot name the date or state which hospital she is at. She is cooperative. Discharge Vital Signs: Blood pressure is 131/70 with a heart rate of 63, respirations 16, temperature 98.3 degrees oral with oxygen saturations of 96- 100% on 2 L nasal cannula and room air saturations will be checked. DISCHARGE ACTIVITY: Per physical therapy's recommendations and facility protocols. DISCHARGE DIET: Healthy heart. DISCHARGE MEDICATIONS: Metoprolol succinate 25 mg at bedtime, lisinopril 20 b.i.d., digoxin 125 mcg daily. Atorvastatin 80 at bedtime Aldactone 25 daily Lyrica 75 b.i.d. Namenda 5 mg b.i.d., potassium chloride 10 mEq daily, enteric-coated aspirin 81 mg daily. Verapamil ER twice a day, lisinopril 20 b.i.d., flecainide 50 b.i.d., MiraLAX 17 g p.r.n. Calcium plus D3 daily. Colace daily. Lasix 40 mg every Monday, Monday, Monday and Monday. Fentanyl patch 12 mcg every 3 days. Percocet 5/325 every 6 hours p.r.n. pain. DISPOSITION: She is being discharged to rehab in stable condition. TIME SPENT AT DISCHARGE: This is a greater than 30 minute discharge. Dictated by SHREYAS Lakhani for Emmett Balderrama MD cc: SHREYAS Lakhani MD
[2017-04-07 13:55] VITALS: BP 132/61
--- NOTE | 2017-04-07 21:29 | DISCHARGE SUMMARY ---
ADMISSION DATE: 04/05/2017 DISCHARGE DATE: 04/07/2017 DISCHARGE DIAGNOSES: 1. Hyponatremia resolved. 2. Hyperkalemia with a potassium of 6 resolved. 3. Escherichia coli urinary tract infection pansensitive, highly sensitive to Levaquin. 4. Dementia Alzheimer's type. 5. Acute metabolic encephalopathy resolved secondary to urinary tract infection. 6. Acute renal failure resolved. 7. Serum creatinine is back to her baseline. Her blood pressure medications have been restarted. 8. Hypotension secondary to sepsis resolved. 9. Hypertension. She has been restarted on her home medications. 10. Sepsis secondary to urinary tract infection. CONSULTATIONS: None. PROCEDURE: None. BRIEF HOSPITAL COURSE: The patient is an 86-year-old female who was admitted as noted on the HPI and treated in the usual fashion. She was placed in ICU initially. Her blood pressure medications were held as was her fentanyl patch. She had to stay off her fentanyl as well as her opiates secondary to hypotension. Her hypotension was secondary to her sepsis. She was placed on antibiotics and continued to improve. Her urine eventually grew E. coli which was highly sensitive to Levaquin. Her Rocephin was stopped. She was changed over to Levaquin. She tolerated it very well. She thankfully had an uneventful hospital course after her infection began turning the corner and began improving. DISPOSITION: The patient will be discharged home. DISCHARGE MEDICATIONS: No chronic changes were made on her home medications. In fact, she was restarted on her lisinopril as well as her Duragesic patch. She will continue on Levaquin for a total of 7 days. She will take 5 more days at home. No other changes were made. TIME SPENT: 35 minutes was spent on discharge planning and instructions. cc: Emmett Balderrama MD
[2017-04-08] MEDS ORDERED: DURAGESIC 25 MICROGM/HR PATCH TD SCH (06:00)
== END 2017-04-07 15:00 ==
LOC: P.MEDSURG 13:42 → P.ED 13:42 → P.EDIPHOLD 19:42 → P.ICU 23:43 → P.MEDSURG 04-05 14:48
PROVIDERS: ADMIT Family Medicine; ATTEND Family Medicine

== ENCOUNTER 2018-09-29 07:23 | Inpatient (IN) ==
--- NOTE | 2018-09-29 07:30 | PROVIDER DOCUMENTATION ---
HPI-General Adult - General Chief Complaint: General Adult Stated Complaint: "Grumpier then normal" Time Seen by Provider: 09/29/18 07:26 Source: EMS Allergies/Adverse Reactions: Patient Allergies Allergy/AdvReac Type Severity Reaction Status Date / Time cyclobenzaprine HCl * Allergy Intermediate HEART RACES Verified 08/06/17 11:37 [From Flexeril] donepezil [From Aricept] AdvReac HIVES Verified 07/06/18 22:33 Home Medications: Home Medication List Medication Instructions Recorded Confirmed Last Taken Type Atorvastatin Calcium 80 mg PO QHS 01/01/17 09/29/18 07/23/18 21:00 History Digoxin [Digox] 125 mcg PO DAILY 01/01/17 09/29/18 07/23/18 09:00 History Omeprazole 40 mg PO DAILY@0700 01/01/17 09/29/18 01/01/17 History Flecainide Acetate 50 mg PO BID 01/02/17 09/29/18 Unknown History Calcium Carb, Citrate/Vit D3 600 mg PO QAM 02/14/17 09/29/18 Unknown History [Calcium + D3 ER Tablet] Montelukast Sodium 10 mg PO QPM 02/14/17 09/29/18 Unknown History Diltiazem HCl [Cartia Xt] 1 cap PO DAILY 07/06/18 09/29/18 07/23/18 09:00 History Albuterol Sulfate Inhaler 2 puff INH [id number] 07/24/18 09/29/18 Unknown History [Ventolin Hfa] Duloxetine [Cymbalta] 30 mg PO BID 07/24/18 09/29/18 Unknown History Fluticasone Propionate [Flovent 50 mcg IH HS 07/24/18 09/29/18 Unknown History Diskus] Furosemide [Lasix] 40 mg PO DIRECTED 07/24/18 09/29/18 Unknown History Pregabalin [Lyrica] 50 mg PO BID #60 cap 07/30/18 09/29/18 Unknown Rx Cyanocobalamin/Cobamamide [B12 1 each SL DAILY 09/29/18 09/29/18 Unknown History 5,000 Mcg Microlozenge] Oxycodone HCl/Acetaminophen 5 mg PO Q6H PRN PRN 09/29/18 09/29/18 Unknown History [Percocet 7.5-325 mg Tablet] Sennosides [Natural Laxative] 8.6 mg PO DAILY 09/29/18 09/29/18 Unknown History Spironolactone 25 mg PO DIRECTED 09/29/18 09/29/18 Unknown History Spironolactone [Aldactone] 50 mg PO DIRECTED 09/29/18 09/29/18 Unknown History - History of Present Illness -Gen Adult Nature of Presenting Problems: grumpy more so than usual Review of Systems - Adult - REVIEW OF SYSTEMS - ADULT Constitutional: reports: no symptoms reported Eyes: reports: no symptoms reported Ears, Nose, Mouth & Throat: reports: no symptoms reported Cardiovascular: reports: no symptoms reported Respiratory: reports: no symptoms reported Gastrointestinal: reports: no symptoms reported Genitourinary: reports: no symptoms reported Musculoskeletal: reports: no symptoms reported Integumentary: reports: no symptoms reported Neurological: reports: no symptoms reported (not talking altered mental status hypoxic) Past History - Adult - PAST MEDICAL HISTORY-ADULT Review of Records: reports: Old Records Reviewed Major Childhood Illnesses: reports: denies history Cardiovascular: reports: cardiac disease, A-Fib, CHF, HTN, palpitations, pacemaker Respiratory: reports: COPD Gastrointestinal: reports: denies history Obstetrical/Gynecological: reports: denies history Genitourinary: reports: denies history Musculoskeletal: reports: chronic pain Neurological: reports: dementia Endocrine/Immune: reports: thyroid disorder Other Conditions: reports: denies history - PRIOR SURGERIES/PROCEDURES Surgical/Procedure History: reports: pacemaker, orthopedic (extremity), joint replacement, back/neck - IMMUNIZATION STATUS Childhood Immunizations: See Nurse Assessment Flu Vaccine: See Nurse Assessment - FAMILY HISTORY Family History: reviewed, not pertinent Physical Exam-General - CONSTITUTIONAL General Appearance: appears well - EYES Eyes: PERRL/EOMI, pink conjunctivae - HEAD, EARS, NOSE, MOUTH & THROAT HENMT: normocephalic/atraumatic, moist mucous membranes, normal ENT inspection - NECK Neck: non-tender, full range of motion - RESPIRATORY Respiratory: decreased breath sounds - CARDIOVASCULAR Cardiovascular: normal peripheral pulses, regular rate, rhythm - GASTROINTESTINAL (ABDOMEN) Abdominal Exam: soft - LYMPHATIC Lymphatic: no adenopathy - MUSCULOSKELETAL Back Exam: no CVA tenderness Extremity: normal range of motion, non-tender, normal gait - SKIN Integumentary: normal color, normal turgor - NEUROLOGIC Neurologic: grossly normal - PSYCHIATRIC Psych/Mental Status: other (nontalkative) Progress - PLAN OF CARE/RESULTS Progress/Plan/Lab Results: Vital Signs - 8 hr 09/29/18 07:23 Temperature 98.5 F Pulse Rate 60 Respiratory Rate 18 Blood Pressure 138/67 O2 Sat by Pulse Oximetry 85 L Orders Category Date Time Status CHEST-PORTABLE [RAD] Stat Exams 09/29/18 07:27 Ordered CBC WITH ELECTRONIC DIFF [HEME] Stat Lab 09/29/18 07:26 Ordered CK PROFILE [SP CHEM] Stat Lab 09/29/18 07:26 Ordered COMPREHENSIVE METABOLIC PANEL [CHEM] Stat Lab 09/29/18 07:27 Ordered TROPONIN T Stat Lab 09/29/18 07:27 Ordered URINE DRUG SCREEN PL Stat Lab 09/29/18 07:29 Uncollected ua [URINALYSIS PL W/POSS RFLX CULT] [URINALYSIS] Stat Lab 09/29/18 07:27 Uncollected Result Diagrams: 09/29/18 07:50 09/29/18 07:50 Departure - Departure Date of Disposition Decision: 09/29/18 Time of Disposition Decision: 17:42 DIAGNOSIS: CHF (congestive heart failure), COPD (chronic obstructive pulmonary disease) Disposition: ADMITTED INPATIENT 09 Certified Medical Emergency: Emergent Condition: Stable - Critical Care Note This patient required my direct & personal management of CC.: No Attestation - Physician/ INDY Attestation Patient care was provided by Advanced Practice Provider:: No The physician spent face to face time with patient:: Yes Advanced Practice Provider documentation review:: Supervising physician onsite and consulted in the evaluation and care of this patient. The physician did have a face to face encounter with the patient.
[2018-09-29 07:55] LABS: BASO# 0.02 X1000 (0.0-0.2); BASO% 0.2 % (0.0-0.8); EOS# 0.44 X1000 (0.0-0.7); EOS% 4.7 % (0.0-10.0); HEMATOCRIT 31.2 % (37.0-47.0); HEMOGLOBIN 10.3 g/dL (12.0-16.0); IMM GRAN# 0.06 X1000 (0.0-0.04); IMM GRAN% 0.6 % (0.0-0.5); LYMPH# 1.54 X1000 (1.2-3.4); LYMPH% 16.4 % (20.5-51.1); MCH 30.3 PG (27-31); MCV 91.8 FL (81-99); MONO# 1.39 X1000 (0.11-0.59); MONO% 14.8 % (1.7-9.3); NEUT# 5.92 X1000 (1.4-6.5); NEUT% 63.3 % (42.2-75.2); PLT 162 X1000 (130-400); RDW 14.3 % (11.5-14.5); WBC 9.37 X1000 (4.8-10.8)
[2018-09-29 08:13] LABS: BE 3.4 mmoll (-3.0-3.0); BLOOD TYPE ARTERIAL; HCO3-(ACT) 27.3 mmoll (20.0-26.0); METHB 1.3 % (0.0-1.5); O2(CT) 12.8 mL/dL (15.0-23.0); PCO2(98.6) 33 mmHg (35-45); SAMPLE BLOOD; SAO2 87.7 % (95.0-100.0); THB 10.8 g/dL (11.5-17.4); pH(98.6) 7.51 (7.35-7.45)
[2018-09-29 08:13] LABS: BILIRUBIN URINE NEGATIVE (NEGATIVE); BLOOD URINE NEGATIVE (NEGATIVE); CLARITY CLEAR (CLEAR); COLOR YELLOW; GLUCOSE URINE NEGATIVE (NEGATIVE); KETONE URINE NEGATIVE (NEGATIVE); LEUKOCYTES URINE NEGATIVE (NEGATIVE); NITRITE URINE NEGATIVE (NEGATIVE); PH URINE 6.5; PROTEIN URINE NEGATIVE (NEGATIVE); UROBILINOGEN URINE NORMAL
[2018-09-29 08:16] LABS: URINE EPITHELIAL CELLS <10 /HPF (<10); URINE SOURCE CATH
--- NOTE | 2018-09-29 08:16 | Diag Imaging Result Doc PS360 ---
EXAM: CHEST-PORTABLE INDICATION: ams TECHNIQUE: One view COMPARISON: 07/23/2018 FINDINGS: Lung volumes are low. There is suggestion of pulmonary venous congestion and interstitial thickening suggesting edema. There is probably a background of fibrosis. There is no discrete pleural fluid collection or pneumothorax. Cardiac silhouette is top normal to mildly prominent. IMPRESSION: Central and basilar infiltrates with low lung volumes likely representing pulmonary edema. Electronically signed by Cl Palmer 09/29/2018 8:14 AM
[2018-09-29 08:18] LABS: ALLEN TEST YES; MODALITY ROOM AIR; O2HB 84.6 % (95.0-99.0)
[2018-09-29 08:18] LABS: ALBUMIN 3.2 g/dL (3.5-5.0); CALCIUM 8.5 mg/dL (8.8-10.2); CREATININE 1.1 mg/dL (0.5-0.9); POTASSIUM 4.3 mmol/L (3.5-5.1); TOTAL BILIRUBIN 0.5 mg/dL (0.20-1.00); TOTAL PROTEIN 5.9 g/dL (6.3-8.3)
[2018-09-29 08:19] LABS: UR AMPHETAMINES QUAL NONE DETECTED (NONE DETECT); UR BARBITUATES QUAL NONE DETECTED (NONE DETECT); UR BENZODIAZEPIN QUAL NONE DETECTED (NONE DETECT); UR CANNABINOIDS QUAL NONE DETECTED (NONE DETECT); UR COCAINE QUAL NONE DETECTED (NONE DETECT); UR METHADONE QUAL NONE DETECTED (NONE DETECT); UR METHAMPHETAMINE QUAL NONE DETECTED (NONE DETECT); UR OPIATES QUAL NONE DETECTED (NONE DETECT); UR OXYCODONE QUAL PRESUMPTIVE POSITIVE (NONE DETECT); UR PCP QUAL NONE DETECTED (NONE DETECT); UR PROPOXYPHENE QUAL NONE DETECTED (NONE DETECT); UR TCA QUAL PRESUMPTIVE POSITIVE (NONE DETECT)
--- NOTE | 2018-09-29 12:13 | Diag Imaging Result Doc PS360 ---
EXAM: CT HEAD W/O CONTRAST INDICATION: ams TECHNIQUE: This exam was performed using automated exposure control, adjustment of mA or kV according to patient size, and/or use of iterative reconstruction technique. COMPARISON: 08/18/2017 FINDINGS: There is patchy low attenuation in the periventricular and subcortical white matter suggesting fairly advanced microangiopathy, stable. There is no definite acute infarct given the limited sensitivity of CT versus MRI. There is no discrete intracranial mass, mass effect, or intracranial hemorrhage. There is moderate sphenoid sinus mucosal disease. Surrounding soft tissues and bony structures are essentially unremarkable, otherwise. IMPRESSION: Stable chronic appearing intracranial changes but no evidence of acute intracranial pathology. Electronically signed by Cl Palmer 09/29/2018 12:11 PM
--- NOTE | 2018-09-29 12:23 | Diag Imaging Result Doc PS360 ---
EXAM: CT THORAX W/CONTRAST INDICATION: sob TECHNIQUE: This exam was performed using automated exposure control, adjustment of mA or kV according to patient size, and/or use of iterative reconstruction technique. COMPARISON: 07/24/2018 FINDINGS: Bilateral infiltrates that are mainly interstitial are noted in the mid and lower lung zones indicating pulmonary edema with a background of fibrosis. There is no pleural fluid collection and no pneumothorax. There is stable cardiomegaly. Shotty borderline and mildly prominent mediastinal lymph nodes are essentially stable. Coronary artery and aortic atherosclerotic calcification noted. Limited views of the upper abdomen are essentially unremarkable. IMPRESSION: Bilateral infiltrates most compatible with pulmonary edema with a background of fibrosis as described. Electronically signed by Cl Palmer 09/29/2018 12:21 PM
[2018-09-29] MEDS ORDERED: TYLENOL PO PRN (13:26)
[2018-09-29] MEDS ORDERED: ZOFRAN IV PRN (13:26)
--- NOTE | 2018-09-29 15:09 | HISTORY AND PHYSICAL ---
PRIMARY CARE PHYSICIAN: Dr. Smith Finch. CHIEF COMPLAINT: Not feeling well overall. Per the daughter, has not been verbally responsive for the last couple of days, which is a change for this patient. HISTORY OF PRESENTING ILLNESS: This is an 88-year-old female who presents from [facility] ER via EMS from [facility] and [facility]. She was reported to have been "on "grumpier" than usual per ER records. The daughter states that she has not been talking for the past couple of days and, prior to that, she was verbal. She is not responsive as much as she normally is, just staring off into space. Her workup though in the emergency room showed on arrival she had a O2 saturation of 85%. Placed on O2 via nasal cannula at 2 L and was up to 96%. We obtained a chest x-ray that was read as central and basilar infiltrates with low lung volumes, likely representing pulmonary edema, so she will be admitted for further evaluation and treatment. PAST MEDICAL HISTORY: Hypertension, restless leg syndrome, Alzheimer's dementia , atrial fibrillation/flutter, neuropathy, hyperlipidemia. PAST SURGICAL HISTORY: Shoulder surgery x2, back surgery, and a pacemaker placement. FAMILY HISTORY: Heart disease in her parents and siblings, and a daughter with diabetes, type 2. SOCIAL HISTORY: She currently resides at [facility] and [facility] and denies any tobacco, alcohol, or illicit drug use. ALLERGIES: Cyclobenzaprine and donepezil. HOME MEDICATIONS: 1. Ventolin 2 puff inhalation 4 times daily. 2. Atorvastatin 80 mg p.o. at bedtime. 3. Calcium carbonate with vitamin D3 at 600 mg p.o. q.a.m. 4. Vitamin B12 at 5000 mcg lozenge sublingually daily. 5. Digoxin 125 mcg p.o. daily. 6. Cardizem 120 mg p.o. daily. 7. Cymbalta 30 mg p.o. b.i.d. 8. Flecainide 50 mg p.o. b.i.d. 9. Flovent Diskus 50 mcg inhalation at bedtime. 10. Lasix 40 mg as directed will be held. 11. Montelukast sodium 10 mg p.o. every evening. 12. Omeprazole 40 mg p.o. daily. 13. Percocet 5 mg p.o. q.6 hours p.r.n. 14. Lyrica 50 mg p.o. b.i.d. 15. Senna 8.6 mg p.o. daily. 16. Aldactone 50 mg p.o. as directed and 25 mg p.o. as directed. We will need to obtain correct administration of those medications. I will place an order for nursing to update and confirm these medications. LABORATORY DATA: White blood cell count of 9.37, hemoglobin 10.3, hematocrit 31.2, platelets 162,000. ABG with a pH of 7.51, pCO2 of 33, PO2 is not listed. Bicarb 27.3, and this was on room air. Sodium 136, potassium 4.3, chloride 99, CO2 of 21. BUN 20, creatinine 1.1. Glucose 101. Cardiac enzyme was negative. ProBNP of 1819. Urinalysis was negative. Digoxin level is 0.7. Urine drug screen was presumptive positive for oxycodone and tricyclics. Chest x-ray showed central and basilar infiltrates with low lung volumes likely representing pulmonary edema. REVIEW OF SYSTEMS: Unable to obtain from patient due to altered mental status. PHYSICAL EXAMINATION: VITAL SIGNS: On arrival, she had a temperature of 98.5, pulse 60, respirations 18, blood pressure 138/67, was saturating 95% on room air on arrival. Now sat 96% on 2 L via nasal cannula. GENERAL: This is an 88-year-old female who is sitting up in the bed unable to answer questions. Daughter is at bedside to give information. HEENT: Normocephalic, atraumatic. Normal ENT inspection. Oropharynx and nares are clear. Eyes: Pupils are equal, round, and reactive to light and accommodation. NECK: Normal inspection. Normal range of motion. LUNGS: Clear to auscultation bilaterally. She did have some upper airway wheezing noted. Equal lung expansion and chest wall movement. O2 via nasal cannula currently in use. HEART: Regular rate and rhythm. No murmurs, rubs, or gallops. ABDOMEN: Soft, nontender, nondistended. Bowel sounds are present x4 quadrants. MUSCULOSKELETAL: Unable to assess for patient at this time due to her mentation. NEUROLOGICAL: Exam appears grossly intact. ASSESSMENT: 1. Acute respiratory failure. 2. Pulmonary edema per chest x-ray. 3. Altered mental status in a known patient with Alzheimer's dementia. PLAN: She will be admitted to the medical unit at [place]. We are obtaining a CT of the head without contrast and a CT of the thorax with contrast. We will place her on telemetry. O2 per protocol. Lasix 40 mg IV q.[address] an indwelling Christopher catheter. We need to update and confirm her home medications for several of her dosages. We will recheck a CBC and a BMP in the a.m. and recheck a chest x-ray, and further orders after being seen by attending. Dictated by SHREYAS Lundbreg for Gurwinder Collins MD I personally saw the patient face to face, and fully agree with the assessment/ plan mentioned above. She has some altered mental status and abnormalities on chest x-ray. She had a normal chest x-ray only two months ago however. I believe she might be having a combination of pulmonary edema with underlying infiltrates because of which we are going to treat her with diuretics and IV antibiotics. Gurwinder Collins MD cc: SHREYAS Lundberg MD Bharat K. Vakharia, MD [facility] CENTERN[facility]
[2018-09-29] MEDS: VENTOLIN HFA INH SCH ×2 (16:42→20:11)
[2018-09-29] MEDS: TAMBOCOR PO SCH ×2 (16:57→20:29)
[2018-09-29 17:03] LABS: BILIRUBIN URINE NEGATIVE (NEGATIVE); BLOOD URINE NEGATIVE (NEGATIVE); CLARITY CLEAR (CLEAR); COLOR YELLOW; GLUCOSE URINE NEGATIVE (NEGATIVE); KETONE URINE NEGATIVE (NEGATIVE); LEUKOCYTES URINE NEGATIVE (NEGATIVE); NITRITE URINE NEGATIVE (NEGATIVE); PROTEIN URINE NEGATIVE (NEGATIVE); UROBILINOGEN URINE NORMAL
[2018-09-29 17:05] LABS: URINE SOURCE CATH
[2018-09-29 17:07] LABS: URINE BACTERIA 1+ /HFP; URINE CAST NONE SEEN /LPF; URINE CRYSTAL NONE SEEN /HPF; URINE EPITHELIAL CELLS <10 /HPF (<10); URINE WBC <10 /HPF (<10); URINE YEAST NONE SEEN /HPF
[2018-09-29] MEDS: CARDIZEM CD PO SCH (17:22)
[2018-09-29] MEDS: LASIX IV SCH (17:22)
[2018-09-29] MEDS: ZOSYN 3.375 GM in NS 50 ML IV SCH (17:22)
[2018-09-29] MEDS: LYRICA PO SCH (20:28)
[2018-09-29] MEDS: PERCOCET-5 PO PRN (20:28)
[2018-09-29] MEDS: LIPITOR PO SCH (20:28)
[2018-09-29] MEDS: CYMBALTA PO SCH (20:29)
[2018-09-29] MEDS: SINGULAIR PO SCH (20:30)
[2018-09-29] MEDS: ZITHROMAX 500 MG/NS 500 MG/250 ML IVPB IV SCH (20:30)
[2018-09-29] MEDS: FLONASE NAS SCH (20:33)
[2018-09-30] MEDS: PERCOCET-5 PO PRN ×2 (02:11→21:10)
[2018-09-30] MEDS: ZOSYN 3.375 GM in NS 50 ML IV SCH ×4 (02:11→21:09)
[2018-09-30] MEDS: VENTOLIN HFA INH SCH ×4 (04:02→21:36)
[2018-09-30] MEDS: LASIX IV SCH ×2 (05:16→17:20)
[2018-09-30 06:33] LABS: BASO# 0.02 X1000 (0.0-0.2); BASO% 0.2 % (0.0-0.8); EOS# 0.39 X1000 (0.0-0.7); EOS% 3.8 % (0.0-10.0); HEMATOCRIT 32.9 % (37.0-47.0); IMM GRAN# 0.03 X1000 (0.0-0.04); IMM GRAN% 0.3 % (0.0-0.5); LYMPH# 1.46 X1000 (1.2-3.4); LYMPH% 14.2 % (20.5-51.1); MCH 30.1 PG (27-31); MCHC 33.4 g/dL (33-37); MCV 90.1 FL (81-99); MONO# 1.42 X1000 (0.11-0.59); MONO% 13.8 % (1.7-9.3); MPV 9.9 FL (7.4-10.4); NEUT# 6.94 X1000 (1.4-6.5); NEUT% 67.7 % (42.2-75.2); PLT 188 X1000 (130-400); RBC 3.65 XMIL (4.2-5.4); RDW 14.2 % (11.5-14.5); WBC 10.26 X1000 (4.8-10.8)
[2018-09-30 06:52] LABS: CALCIUM 8.8 mg/dL (8.8-10.2); CREATININE 1.4 mg/dL (0.5-0.9); POTASSIUM 3.7 mmol/L (3.5-5.1)
[2018-09-30] MEDS: PRILOSEC PO SCH (07:05)
--- NOTE | 2018-09-30 08:01 | Diag Imaging Result Doc PS360 ---
EXAM: CHEST-PORTABLE INDICATION: dyspnea TECHNIQUE: One view COMPARISON: 09/29/2018 FINDINGS: The lung volumes remain low. Bilateral infiltrates are essentially stable as compared to the previous study. No new consolidation is identified. Cardiac silhouette is stable. IMPRESSION: Stable chest. Electronically signed by Cl Palmer 09/30/2018 7:58 AM
[2018-09-30] MEDS: SENOKOT PO SCH (08:53)
[2018-09-30] MEDS: CALTRATE 600 + D PO SCH (08:53)
[2018-09-30] MEDS: LYRICA PO SCH ×2 (08:53→21:06)
[2018-09-30] MEDS: CYMBALTA PO SCH ×2 (08:53→21:06)
[2018-09-30] MEDS: CARDIZEM CD PO SCH (08:53)
[2018-09-30] MEDS: LANOXIN PO SCH (08:53)
[2018-09-30] MEDS: VITAMIN B-12 SL SCH (08:54)
[2018-09-30] MEDS: TAMBOCOR PO SCH ×2 (08:54→21:07)
--- NOTE | 2018-09-30 13:40 | PROGRESS NOTE ---
DATE: 09/30/2018 SUBJECTIVE: Patient is more alert this morning. She does have periods of disorientation, however. OBJECTIVE: Vital Signs: Temperature 98.1 degrees, pulse 60 per minute, respiratory rate 20 per minute, blood pressure 131/52, pulse oximetry 99% on 2 L of oxygen via nasal cannula. General: Patient is awake and alert. She does have some disorientation at times. She does not appear to be in any acute distress, however. Cardiovascular System: First and second heart sounds are audible without any murmurs or gallops. Respiratory System: Bilateral lung air entry is moderately decreased with a few bilateral fine crackles present on auscultation. Gastrointestinal: Abdomen is soft and nondistended. It is nontender on palpation. Normal bowel sounds are present. DIAGNOSTIC DATA: CBC is nondiagnostic. Basic metabolic panel showed BUN of 23 and creatinine 1.4. Rest of the BMP is nondiagnostic. IMPRESSIONS: 1. Acute hypoxemic respiratory failure secondary to pulmonary edema with possible underlying pneumonia. 2. Altered mental status in a patient who is known to have Alzheimer's dementia. 3. Multiple comorbid conditions including chronic obstructive pulmonary disease, hypertension, dyslipidemia, and advanced age. PLAN: The patient will be kept here at [facility] and we will keep her on IV antibiotics including Zosyn and azithromycin intravenously. We will continue with bronchodilators and keep an eye on her fluid status since she appears to be dry. Will therefore decrease the dose of furosemide to 40 mg IV q.24 hours. We will continue her routine home medications and repeat CBC, BMP, chest x-ray, and ABG in the morning tomorrow. Further recommendations will be given as per hospital course. cc: Gurwinder Collins MD
[2018-09-30] MEDS: SINGULAIR PO SCH (21:06)
[2018-09-30] MEDS: LIPITOR PO SCH (21:06)
[2018-09-30] MEDS: FLONASE NAS SCH (21:07)
[2018-09-30] MEDS: ZITHROMAX 500 MG/NS 500 MG/250 ML IVPB IV SCH (22:00)
[2018-10-01] MEDS: PERCOCET-5 PO PRN (04:05)
[2018-10-01] MEDS: VENTOLIN HFA INH SCH ×4 (04:45→21:17)
[2018-10-01] MEDS: LASIX IV SCH ×2 (04:52→13:14)
[2018-10-01 05:48] LABS: BE 6.1 mmoll (-3.0-3.0); BLOOD TYPE ARTERIAL; HCO3-(ACT) 29.6 mmoll (20.0-26.0); METHB 1.1 % (0.0-1.5); O2(CT) 15.3 mL/dL (15.0-23.0); O2HB 91.5 % (95.0-99.0); PCO2(98.6) 38 mmHg (35-45); PO2(98.6) 63 mmHg (60-100); SAMPLE BLOOD; SAO2 94.6 % (95.0-100.0); THB 11.9 g/dL (11.5-17.4)
[2018-10-01 05:51] LABS: ALLEN TEST YES; MODALITY CANNULA
[2018-10-01] MEDS: PRILOSEC PO SCH (05:59)
[2018-10-01 06:29] LABS: BASO# 0.03 X1000 (0.0-0.2); BASO% 0.3 % (0.0-0.8); EOS# 0.57 X1000 (0.0-0.7); HEMATOCRIT 33.4 % (37.0-47.0); HEMOGLOBIN 11.2 g/dL (12.0-16.0); IMM GRAN# 0.06 X1000 (0.0-0.04); IMM GRAN% 0.5 % (0.0-0.5); LYMPH# 1.66 X1000 (1.2-3.4); LYMPH% 14.5 % (20.5-51.1); MCH 30.1 PG (27-31); MCHC 33.5 g/dL (33-37); MCV 89.8 FL (81-99); MONO# 1.38 X1000 (0.11-0.59); MONO% 12.1 % (1.7-9.3); MPV 10.3 FL (7.4-10.4); NEUT# 7.75 X1000 (1.4-6.5); NEUT% 67.6 % (42.2-75.2); PLT 207 X1000 (130-400); RBC 3.72 XMIL (4.2-5.4); RDW 14.1 % (11.5-14.5); WBC 11.45 X1000 (4.8-10.8)
--- NOTE | 2018-10-01 06:38 | Diag Imaging Result Doc PS360 ---
EXAM: CHEST-PORTABLE HISTORY: Pulmonary Edema; Pneumonia TECHNIQUE: Portable chest single view COMPARISON: 09/30/2018 FINDINGS: There are bilateral infiltrates similar to the prior study. The heart is not enlarged. No pleural effusions identified. 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 There has been surgery to the lower neck and each shoulder. IMPRESSION: Stable chest. Electronically signed by Imer Javier 10/01/2018 6:36 AM
[2018-10-01 06:55] LABS: CALCIUM 8.9 mg/dL (8.8-10.2); CREATININE 1.4 mg/dL (0.5-0.9); MAGNESIUM 1.6 mg/dL (1.5-2.7); POTASSIUM 3.6 mmol/L (3.5-5.1)
[2018-10-01] MEDS: ZOSYN 3.375 GM in NS 50 ML IV SCH ×7 (08:30→21:02)
[2018-10-01] MEDS: VITAMIN B-12 SL SCH (08:31)
[2018-10-01] MEDS: LANOXIN PO SCH (08:32)
[2018-10-01] MEDS: CYMBALTA PO SCH ×2 (08:32→20:50)
[2018-10-01] MEDS: TAMBOCOR PO SCH ×2 (08:33→20:50)
[2018-10-01] MEDS: CALTRATE 600 + D PO SCH (08:35)
[2018-10-01] MEDS: SENOKOT PO SCH (08:35)
[2018-10-01] MEDS: LYRICA PO SCH ×2 (08:35→20:50)
[2018-10-01] MEDS: CARDIZEM CD PO SCH (08:35)
--- NOTE | 2018-10-01 12:23 | PROGRESS NOTE ---
DATE: 10/01/2018 SUBJECTIVE: Patient denies having any acute complaints and feels much better this morning. OBJECTIVE: Vital Signs: Temperature 97.8 degrees, pulse 58 per minute, respiratory rate 18 per minute, blood pressure 114/55, pulse oximetry 97% on 2 L of oxygen via nasal cannula. General: Patient is alert and awake. She does not appear to be in any acute distress. Cardiovascular System: First and second heart sounds are audible without any murmurs or gallops. Respiratory System: Bilateral lung air entry is moderately decreased with a few fine crackles present bilaterally on auscultation. Gastrointestinal: Abdomen is soft and nontender. Normal bowel sounds are present. DIAGNOSTIC DATA: CBC this morning is nondiagnostic and chemistry shows sodium levels of 132, BUN 27, creatinine 1.4 and glucose levels of 122. In comparison her sodium levels of 136 yesterday and creatinine was found to be 1.4 yesterday. ProBNP has been found to be elevated at 1819 yesterday. Chest x-ray done this morning shows bilateral infiltrates similar to her prior study. No pleural effusions were identified, but bilateral diffuse infiltrates could be secondary to pneumonia and pulmonary edema. IMPRESSION: 1. Acute hypoxemic respiratory failure secondary to pulmonary edema with possible underlying pneumonia. 2. Altered mental status in a patient who is known to have Alzheimer's dementia and now has improved. 3. Multiple comorbid conditions, including COPD, hypertension, dyslipidemia, and advanced age. PLAN: Patient will continue to receive IV antibiotics, including Zosyn and azithromycin. I have reduced the dosage of furosemide to 40 mg once daily and would continue with routine home medications. Further recommendations will be given as per hospital course. She probably can be discharged home in the next 1 to 2 days. cc: Gurwinder Collins MD
[2018-10-01] MEDS: LIPITOR PO SCH (20:50)
[2018-10-01] MEDS: SINGULAIR PO SCH (20:50)
[2018-10-01] MEDS: ZITHROMAX PO SCH (20:50)
[2018-10-01] MEDS: FLONASE NAS SCH (21:00)
[2018-10-02] MEDS: VENTOLIN HFA INH SCH ×5 (03:26→22:48)
[2018-10-02] MEDS: ZOSYN 3.375 GM in NS 50 ML IV SCH ×4 (04:11→20:24)
[2018-10-02] MEDS: PRILOSEC PO SCH (06:30)
[2018-10-02 06:49] LABS: BASO# 0.03 X1000 (0.0-0.2); BASO% 0.3 % (0.0-0.8); EOS# 0.68 X1000 (0.0-0.7); EOS% 5.9 % (0.0-10.0); HEMATOCRIT 30.8 % (37.0-47.0); HEMOGLOBIN 10.1 g/dL (12.0-16.0); IMM GRAN# 0.07 X1000 (0.0-0.04); IMM GRAN% 0.6 % (0.0-0.5); LYMPH# 1.47 X1000 (1.2-3.4); LYMPH% 12.7 % (20.5-51.1); MCH 29.7 PG (27-31); MCHC 32.8 g/dL (33-37); MCV 90.6 FL (81-99); MONO# 1.35 X1000 (0.11-0.59); MONO% 11.7 % (1.7-9.3); MPV 10.3 FL (7.4-10.4); NEUT# 7.97 X1000 (1.4-6.5); NEUT% 68.8 % (42.2-75.2); PLT 198 X1000 (130-400); RDW 14.3 % (11.5-14.5); WBC 11.57 X1000 (4.8-10.8)
[2018-10-02 07:22] LABS: CALCIUM 8.4 mg/dL (8.8-10.2); CREATININE 1.7 mg/dL (0.5-0.9); MAGNESIUM 1.7 mg/dL (1.5-2.7); POTASSIUM 3.6 mmol/L (3.5-5.1)
[2018-10-02] MEDS: TAMBOCOR PO SCH ×2 (11:39→20:27)
[2018-10-02] MEDS: VITAMIN B-12 SL SCH (11:39)
[2018-10-02] MEDS: LYRICA PO SCH ×2 (11:39→20:25)
[2018-10-02] MEDS: CALTRATE 600 + D PO SCH (11:40)
[2018-10-02] MEDS: LANOXIN PO SCH (11:41)
[2018-10-02] MEDS: CARDIZEM CD PO SCH (11:41)
[2018-10-02] MEDS: CYMBALTA PO SCH ×2 (11:41→20:25)
[2018-10-02] MEDS: SENOKOT PO SCH (11:43)
[2018-10-02] MEDS: LASIX IV SCH (16:00)
--- NOTE | 2018-10-02 16:19 | PROGRESS NOTE ---
DATE: 10/02/2018 SUBJECTIVE: Patient reports feeling still short of breath, but somewhat better in comparing with yesterday. OBJECTIVE: Vital Signs: Temperature 98.1 degrees, heart rate 60, respiratory rate 18, blood pressure 113/54, O2 saturation 96% on 2 L nasal cannula. General Examination: This is a chronically ill-looking, 88-year-old female, lying in bed in no acute distress. Cardiovascular exam: S1, S2 heard. No murmurs, gallops, or rubs. Regular rate and rhythm. Respiratory exam: Fine crackles still present in both pulmonary bases. Patient is not using any accessory muscles. Abdomen: Soft, a little bit distended. Nontender to palpation. Bowel sounds present. No organomegaly. Extremities: No clubbing, cyanosis, or edema. Peripheral pulses present in both legs. Neurological exam: Patient alert, oriented x3. Hard of hearing. Moves 4 extremities. LABORATORY DATA: White cell count 11.57, hemoglobin 10.1, hematocrit 30.8, platelets 198. with creatinine 1.7 and sodium 135. ASSESSMENT AND PLAN: 1. Acute hypoxemic respiratory failure secondary to pulmonary edema. The patient reports feeling fine. Because renal function has gotten worse from 1.1 on admission to 1.7 today, I think we will hold Lasix today and see how this patient does clinically. The x-ray from today shows possible pneumonia, so that is why this patient is on day 3 of Zosyn 3.375 g q. 6 hours. We will continue with the same medication. 2. Altered mental status. The patient has Alzheimer disease, but she is more awake today. We will continue to monitor. 3. Chronic obstructive pulmonary disease is not in any exacerbation. We will provide breathing treatment as needed only. 4. Hypertension. Blood pressure is under control in the range of 100 to 1-teens. We will continue with the same management. 5. At this point, we will continue with the same management. We will hold Lasix 1 day and see how she does. Patient requiring 2 L of oxygen by nasal cannula. We will continue monitoring this patient closely. cc: Jerman Torres MD
[2018-10-02] MEDS: SINGULAIR PO SCH (20:25)
[2018-10-02] MEDS: LIPITOR PO SCH (20:25)
[2018-10-02] MEDS: FLONASE NAS SCH (20:25)
[2018-10-02] MEDS: ZITHROMAX PO SCH (20:25)
[2018-10-03] MEDS: ZOSYN 3.375 GM in NS 50 ML IV SCH ×4 (02:41→20:07)
[2018-10-03] MEDS: VENTOLIN HFA INH SCH ×4 (04:28→20:04)
[2018-10-03] MEDS: PRILOSEC PO SCH (06:12)
[2018-10-03 07:04] LABS: HEMATOCRIT 30.3 % (37.0-47.0); HEMOGLOBIN 10.1 g/dL (12.0-16.0); MCH 30.8 PG (27-31); MCHC 33.3 g/dL (33-37); MCV 92.4 FL (81-99); MPV 10.2 FL (7.4-10.4); RBC 3.28 XMIL (4.2-5.4); WBC 11.06 X1000 (4.8-10.8)
[2018-10-03 07:24] LABS: CALCIUM 8.2 mg/dL (8.8-10.2); CREATININE 1.4 mg/dL (0.5-0.9); POTASSIUM 3.5 mmol/L (3.5-5.1)
[2018-10-03] MEDS: LYRICA PO SCH ×2 (09:06→20:08)
[2018-10-03] MEDS: SENOKOT PO SCH (09:06)
[2018-10-03] MEDS: CALTRATE 600 + D PO SCH (09:06)
[2018-10-03] MEDS: CARDIZEM CD PO SCH (09:06)
[2018-10-03] MEDS: CYMBALTA PO SCH ×2 (09:06→20:08)
[2018-10-03] MEDS: LANOXIN PO SCH (09:07)
[2018-10-03] MEDS: TAMBOCOR PO SCH ×2 (09:13→20:09)
[2018-10-03] MEDS: VITAMIN B-12 SL SCH (09:14)
[2018-10-03] MEDS ORDERED: SAMSCA PO ONE (11:12)
--- NOTE | 2018-10-03 13:24 | Diag Imaging Result Doc PS360 ---
EXAM: CHEST-2 VIEWS HISTORY: pna, pulm edema TECHNIQUE: Chest two views COMPARISON: 10/01/2018 FINDINGS: Poor inspiratory effort. There are increased interstitial markings throughout both lungs. These are slightly less prominent. No cardiomegaly. 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 IMPRESSION: Interval decrease in the pulmonary edema. Electronically signed by Imer Javier 10/03/2018 1:22 PM
--- NOTE | 2018-10-03 14:24 | PROGRESS NOTE ---
DATE: 10/03/2018 SUBJECTIVE: Patient reports still feeling short of breath, but better in comparing with yesterday. Denies any other complaints. No issues noted per nursing staff. OBJECTIVE: Vital Signs: Temperature 97.7 degrees, heart rate 60, respiratory rate 18, blood pressure 146/54, O2 saturation 99% 2 L nasal cannula. General: This is a chronically ill- looking, 88-year-old female, lying in bed in no acute distress. Cardiovascular exam: S1, S2 heard. No murmurs, gallops, or rubs. Regular rate and rhythm. Respiratory exam: Decreased breath sounds globally and crackles still present in both pulmonary bases. Patient not using any accessory muscles or having work of breathing. Abdomen: Soft, a little bit distended, but nontender to palpation. Bowel sounds present. No organomegaly. Extremities: No clubbing, cyanosis, or edema. Peripheral pulses present in both legs. Neurological exam : Patient alert, oriented x2. Hard of hearing. Moves 4 extremities. LABORATORY DATA: White cell count 11.06, hemoglobin 10.1, hematocrit 30.3, platelets 146. Sodium 130, creatinine 1.4. ASSESSMENT AND PLAN: 1. Acute hypoxemic respiratory failure secondary to pulmonary edema. Clinically , this patient looks still a little bit overloaded. Lasix has been held because of increasing renal function, but is back to 1.4 today. So, I think at this time we will receive Lasix today. I will see how this patient does. 2. Altered mental status. That is 1 of the reasons why this patient was admitted to the hospital because we know that she has history of Alzheimer dementia. She is definitely more awake today. We will continue to monitor. 3. Chronic obstructive pulmonary disease. The patient is not on exacerbation. We will provide breathing treatments as needed only. 4. Hypertension. Blood pressure is under control. We will continue with the same management. 5. Disposition: I think this patient is better, but needs to be more days in the hospital. Whenever the patient is ready to go, she will go back to rehabilitation facility. cc: Jerman Torres MD MTDD
[2018-10-03] MEDS: SINGULAIR PO SCH (20:08)
[2018-10-03] MEDS: ZITHROMAX PO SCH (20:08)
[2018-10-03] MEDS: LIPITOR PO SCH (20:08)
[2018-10-03] MEDS: FLONASE NAS SCH (20:09)
[2018-10-04] MEDS: ZOSYN 3.375 GM in NS 50 ML IV SCH ×3 (02:23→14:07)
[2018-10-04] MEDS: VENTOLIN HFA INH SCH ×3 (03:58→16:10)
[2018-10-04] MEDS: PRILOSEC PO SCH (06:14)
[2018-10-04 06:58] LABS: HEMATOCRIT 31.1 % (37.0-47.0); HEMOGLOBIN 10.2 g/dL (12.0-16.0); MCH 29.6 PG (27-31); MCHC 32.8 g/dL (33-37); MCV 90.1 FL (81-99); RBC 3.45 XMIL (4.2-5.4); RDW 13.7 % (11.5-14.5); WBC 11.06 X1000 (4.8-10.8)
[2018-10-04 07:15] LABS: CALCIUM 8.8 mg/dL (8.8-10.2); CREATININE 1.4 mg/dL (0.5-0.9); POTASSIUM 3.6 mmol/L (3.5-5.1)
[2018-10-04] MEDS: CYMBALTA PO SCH (08:59)
[2018-10-04] MEDS: CALTRATE 600 + D PO SCH (08:59)
[2018-10-04] MEDS: SENOKOT PO SCH (08:59)
[2018-10-04] MEDS: LANOXIN PO SCH (09:00)
[2018-10-04] MEDS: CARDIZEM CD PO SCH (09:00)
[2018-10-04] MEDS: TAMBOCOR PO SCH (09:01)
[2018-10-04] MEDS: LYRICA PO SCH (09:01)
[2018-10-04] MEDS: VITAMIN B-12 SL SCH (09:02)
[2018-10-04] MEDS: LASIX IV SCH (14:08)
--- NOTE | 2018-10-04 14:19 | DISCHARGE SUMMARY ---
ADMISSION DATE: 09/29/2018 DISCHARGE DATE: 10/04/2018 DISCHARGE DIAGNOSES: 1. Acute respiratory failure, improved. 2. Pulmonary edema, improved. 3. Metabolic encephalopathy, resolved. 4. Alzheimer's dementia, aware. 5. Chronic obstructive pulmonary disease (COPD), stable. 6. Hypertension, under control. PROCEDURES: 1. Chest x-ray at admission showed central basilar infiltrate with low lung volumes, likely representing pulmonary edema. 2. Head CT showed stable chronic-appearing intracranial changes, but no evidence of acute intracranial pathology. 3. Chest CT showed bilateral infiltrates most compatible with pulmonary edema with a background of fibrosis as described. 4. Chest x-ray done yesterday showed interval decrease in pulmonary edema. HOSPITAL COURSE: This is an 88-year-old female, who presented to the emergency department complaining to be not completely responsive. Evaluated in the ER, she was found to have O2 saturation on arrival 85%. X-ray done there showed central and bibasilar infiltrates with low volumes so this patient was admitted to the hospital. The patient was started on Lasix, and clinically she started getting better. She was not complaining of shortness of breath on the day of discharge. She reports she is feeling weak while she tried to walk some. I think this patient is stable, and she can be discharged back to her rehabilitation facility. DISCHARGE PHYSICAL EXAMINATION: Vital signs: Temperature 98.2 degrees, heart rate 60, respiratory rate 18, blood pressure 99/45, O2 saturation 100% 2 L nasal cannula. General: This is an 88-year-old female, lying in bed, in no acute distress Cardiovascular: S1, S2 heard. No murmurs, gallops, or rubs. Regular rate and rhythm. Respiratory: Minimal wheezing noted in both pulmonary bases. The patient is not using any accessory muscles or having work of breathing. Abdomen: Soft. Nontender to palpation. Nondistended. Bowel sounds present. No signs of peritoneal irritation. Extremities: No clubbing, cyanosis, or edema. Peripheral pulses present in both legs. Neurological: Patient alert and oriented x3. Moves 4 extremities. DISCHARGE DISPOSITION: To rehab facility FOLLOW-UP: Follow up with his primary care physician, Dr. Del Cid, in a week after discharge from rehab. LIST OF MEDICATION: 1. Digoxin 125 mcg 1 tablet p.o. daily. 2. Omeprazole 40 mg 1 tablet p.o. daily. 3. Atorvastatin 80 mg 1 tablet p.o. daily. 4. Tambocor 50 mg 1 tablet p.o. b.i.d. 5. Calcium carbonate 600 mg 1 tablet p.o. in the morning. 6. Singulair 10 mg 1 tablet p.o. daily. 7. Cardia XT 1 tablet p.o. daily. 8. Duloxetine 30 mg 1 tablet p.o. b.i.d. 9. Ventolin 2 puffs by inhalation 4 times per day. 10. Flovent 50 mcg by inhalation at bedtime. 11. Pregabalin 50 mg 1 tablet p.o. b.i.d. 12. Spironolactone as directed. 13. Oxycodone/acetaminophen 7.5 mg 1 tablet p.o. every 6 hours as needed. 14. Furosemide 40 mg 1 tablet p.o. daily. DISCHARGE TIME: 38 minutes. cc: Jerman Torres MD MTDD
[2018-10-04 16:09] VITALS: BP 121/46
== END 2018-10-04 16:20 | DRG 291 ==
LOC: P.ED 07:23 → P.EDIPHOLD 07:23 → SUATTDRO 13:26
PROVIDERS: ATTEND Internal Medicine
CPT/HCPCS: 70450; 71010; 71020; 71045; 71046; 71260; 80048; 80053; 80104; 80162; 80301; 80305; 81001; 82550; 82805; 83735; 83880; 84484; 85025; 85027; 94640; 94760; 94761; 97163; 97530; 99285; A9270; G0431; G0434; G0477; J0456; J1940; J2405; J2543; Q9967